=== PATIENT | female | born 1975 | race Caucasian/White ===

== ENCOUNTER 2019-01-13 11:00 | Outpatient (RCR) | payer SELFPAY | END 2019-02-12 00:01 | LOC: CR 11:00 | PROVIDERS: Family Provider Family Medicine; Visit Provider Internal Medicine Cardiovascular Disease | DX: Z98.61 Coronary angioplasty status (principal) ==

== ENCOUNTER 2019-02-20 13:21 | Outpatient (RCR) | payer SELFPAY | END 2019-03-15 23:59 | disposition home or self-care (01) | LOC: CR 13:21 | PROVIDERS: Family Provider Family Medicine; PCP Family Medicine; Referring Provider Internal Medicine Cardiovascular Disease; Visit Provider Internal Medicine Cardiovascular Disease | DX: Z95.5 Presence of coronary angioplasty implant and graft (principal) ==

== ENCOUNTER 2019-03-18 14:37 | Outpatient (RCR) | payer SELFPAY | END 2019-04-13 23:59 | disposition home or self-care (01) | LOC: CR 14:37 | PROVIDERS: Family Provider Family Medicine; PCP Family Medicine; Referring Provider Internal Medicine Cardiovascular Disease; Visit Provider Internal Medicine Cardiovascular Disease | DX: Z95.5 Presence of coronary angioplasty implant and graft (principal) ==

== ENCOUNTER 2019-04-16 08:24 | Outpatient (RCR) | payer SELFPAY | END 2019-05-14 23:59 | disposition home or self-care (01) | LOC: CR 08:24 | PROVIDERS: Family Provider Family Medicine; PCP Family Medicine; Referring Provider Internal Medicine Cardiovascular Disease; Visit Provider Internal Medicine Cardiovascular Disease | DX: Z95.5 Presence of coronary angioplasty implant and graft (principal) ==

== ENCOUNTER 2019-05-21 06:53 | Observation (INO) | payer MEDICARE, SELFPAY ==
[2019-05-21] VITALS (8 sets, daily range): BP systolic 104–128; BP diastolic 65–91; PULSE 75–90; RESP 16–20; TEMP 36.4–37; O2SAT 90–99; BMI 45.1
--- NOTE | 2019-05-21 06:59 | ED_ITS ---
HPI - Seizure General: Chief Complaint: Seizure Stated Complaint: SEIZURE/N/V BLOOD Time Seen by Provider: 05/21/19 06:59 History of Present Illness: HPI Narrative: 44-year-old female presents with a complaint of seizure. Patient's woke up and witnessed what appeared to be a seizure. He called 911 evidently talking to the we later found he thought he had CT 2 seizures before he called in. Patient has had a little bit of a fever as well and a cough. Fevers been subjective. Patient also has a history of early coronary disease and has had bypass and subsequent stenting she has an implantable defibrillator by her report and her 's I did not witness anything that looked like she had a discharge from the implantable defibrillator. She is not having any chest pain now. Associated symptoms: Deny chest pain, chills, fever(s) or malaise Review of Systems Const: Denies: fever, chills, body aches, change in appetite, fatigue or malaise ENMT: Denies: throat pain, ear pain, nasal discharge or nasal congestion Card: Denies: chest pain, edema, shortness of breath on exertion or shortness of breath when lying down Resp: Denies: shortness of breath, productive cough or non-productive cough GI: Denies: abdominal pain, nausea, vomiting, vomiting blood, coffee grounds in vomit, diarrhea, constipation, bloating, blood in stool or black tarry stool : Denies: flank pain, difficulty urinating, painful urination, urinary frequency or urinary urgency Skin/Breast: Denies: rash or itching Neuro: Reports: seizure-like activity PENDING SALE TO [facility] ED PFSH: Medical History Coronary artery disease Hyperlipidemia Hypertension Surgical History History of coronary artery bypass graft History of implantable cardioverter-defibrillator (ICD) placement Stented coronary artery Most recent stenting December 2018 saphenous vein graft to diagonal with drug-eluting stent as well as balloon angioplasty and saphenous vein graft to first obtuse marginal drug-eluting stent. Family History Other CAD (coronary artery disease) Social History (Reviewed 05/23/19 @ 06:44 by ROLA Bronson Smoking and tobacco status: former smoker Alcohol intake: never Physical Exam Const: COMMON NORMALS: no apparent distress GENERAL APPEARANCE: cooperative and comfortable ORIENTATION/CONSCIOUSNESS: Yes awake, Yes oriented to person, Yes oriented to place and Yes oriented to time HENMT: COMMON NORMALS: normocephalic, head/scalp atraumatic, hearing grossly normal bilaterally, external ears normal, EAC's normal, TM's normal bilaterally, nasal mucous membranes and turbinates normal, moist oral mucous membranes and oropharynx normal HEAD & SCALP: normocephalic and atraumatic NOSE: nasal mucous membranes and turbinates normal EXTERNAL EAR: Yes external ears normal EXTERNAL AUDITORY CANAL: EAC's normal TYMPANIC MEMBRANE: TM's normal bilaterally Eye: COMMON NORMALS: PERRL, EOMs intact bilaterally, conjunctivae normal and no scleral icterus CONJUNCTIVA: Yes conjunctivae normal PUPIL: Yes PERRL Neck/C-Spine: COMMON NORMALS: full ROM, no lymphadenopathy, supple and no JVD Lymph: LYMPHATIC: no lymphadenopathy noted and no lymphedema noted Resp: COMMON NORMALS: normal respiratory effort, no retractions, no use of accessory muscles and clear to auscultation bilaterally AUSCULTATION: clear to auscultation bilaterally Cardio: COMMON NORMALS: no JVD, regular rate, regular rhythm and no murmurs RATE: regular rate RHYTHM: regular rhythm GI: COMMON NORMALS: soft to palpation and no hepatosplenomegaly AUSCULTATION: Yes normoactive bowel sounds PALPATION: Yes soft, No tender, No guarding and Yes no hepatosplenomegaly Extremity: COMMON NORMALS: normal to inspection, normal capillary refill, no clubbing, cyanosis or edema, no calf tenderness and no pedal edema Neuro: SENSORIUM/ORIENTATION: Yes oriented to person, Yes oriented to place and Yes oriented to time Skin: COMMON NORMALS: no rashes or lesions noted GENERAL SKIN EXAM: no rashes or lesions noted Course Vital Signs: Vital signs: Vital Signs Temperature 98.5 F 05/22/19 11:35 Pulse Rate 70 05/22/19 11:35 Respiratory Rate 17 05/22/19 11:35 Blood Pressure 114/76 05/22/19 11:35 Pulse Oximetry 92 05/22/19 11:35 MDM - Seizure MDM Narrative: Medical decision making narrative: There is some concern about potential for Kovic infection patient's patient respiratory isolation and swab. Patient was also analyzer is no evidence of discharge patient was started on Keppra and will go ahead and admit her for further evaluation due to the new onset seizures. Lab Data: Labs: Lab Results 05/21/19 05/21/19 05/21/19 Range/Units 06:35 06:35 06:35 WBC 15.8 H (4.0-10.0) 10^3/ uL RBC 4.79 (4.1-5.3) 10^6/u L Hgb 14.9 (11.5-15.3) g/dL Hct 44.3 (37.0-47.0) % MCV 92.5 (81-99) fL MCH 31.1 (28.0-34.0) pg MCHC 33.6 (30.0-36.0) g/dL RDW 13.7 (12.1-15.1) % Plt Count 437 H (130-400) 10^3/c mm MPV 10.4 (7.4-10.4) fL Neut % (Auto) 81.2 % Lymph % (Auto) 11.8 % [place] % (Auto) 4.1 % Eos % (Auto) 2.2 % Baso % (Auto) 0.3 % Neut # (Auto) 12.8 H (1.8-7.7) 10^3/u L Lymph # (Auto) 1.9 (0.8-4.8) 10^3/u L [place] # (Auto) 0.6 (0.2-0.9) 10^3/u L Eos # (Auto) 0.4 (0.0-0.8) 10^3/u L Baso # (Auto) 0.0 (0.0-0.1) 10^3/u L Nucleated RBC % (a uto) 0 % Nucleated RBCs # 0.0 /100WBC Fibrinogen (184-529) mg/dL D-Dimer (0-0.59) ug/mIFE U Sodium 135 L (136-145) mmol/L Potassium 4.6 (3.5-5.1) mmol/L Chloride 99 (98-107) mmol/L Carbon Dioxide 22 (22-29) mmol/L Anion Gap 18.6 (5-19) BUN 9 (6-20) mg/dL Creatinine 1.0 H (0.5-0.9) mg/dL GFR Calculation 60.8 L (90-130) mL/min Glucose 147 H (65-115) mg/dL Calculated Osmolal ity 279 L (285-295) mOsm/k g Lactic Acid (0.5-2.2) mmol/L Calcium 10.3 (8.5-10.5) mg/dL Magnesium 2.4 H (1.7-2.3) mg/dL Ferritin (15-150) ng/mL Total Bilirubin 0.3 (0.15-1.2) mg/dL AST 27 (0-32) U/L ALT 43 H (0-33) U/L Alkaline Phosphata se 67 (35-105) IU/L Lactate Dehydrogen ase (135-214) U/L Creatine Kinase 286 H (26-192) U/L Total Protein 7.8 (6.6-8.7) g/dL Albumin 4.6 (3.5-5.2) g/dL Globulin 3.2 (1.3-4.6) g/dL Procalcitonin (0-0.5) ng/mL TSH (0.27-4.20) uIU/ mL Urine Color (Yellow) Urine Appearance (CLEAR) Urine pH (5-7) Ur Specific Gravit y (1.005-1.030) Urine Protein (Negative) Urine Glucose (UA) (Normal) Urine Ketones (Negative) Urine Blood (Negative) Urine Nitrate (Negative) Urine Bilirubin (NEGATIVE) Urine Urobilinogen (Negative) mg/dL Ur Leukocyte Mel ase (Negative) Urine RBC (0-2) /hpf Urine WBC (0-5) /hpf Ur Squamous Epith Cells (0-5) Amorphous Sediment Urine Bacteria (NONE) Urine Mucus Urine Opiates Scre en (Negative) ng/mL Ur Barbiturates Sc reen (Negative) ng/mL Ur Phencyclidine S crn (Negative) ng/mL Ur Amphetamines Sc reen (Negative) ng/mL U Benzodiazepines Scrn (Negative) ng/mL Urine Cocaine Scre en (Negative) ng/mL U Marijuana (THC) Screen (Negative) ng/mL Nasal/Oral COVID-1 9 PCR Influenza Type A A g (Negative) Influenza Type B A g (Negative) 05/21/19 05/21/19 05/21/19 Range/Units 06:35 06:35 06:35 WBC (4.0-10.0) 10^3/ uL RBC (4.1-5.3) 10^6/u L Hgb (11.5-15.3) g/dL Hct (37.0-47.0) % MCV (81-99) fL MCH (28.0-34.0) pg MCHC (30.0-36.0) g/dL RDW (12.1-15.1) % Plt Count (130-400) 10^3/c mm MPV (7.4-10.4) fL Neut % (Auto) % Lymph % (Auto) % [place] % (Auto) % Eos % (Auto) % Baso % (Auto) % Neut # (Auto) (1.8-7.7) 10^3/u L Lymph # (Auto) (0.8-4.8) 10^3/u L [place] # (Auto) (0.2-0.9) 10^3/u L Eos # (Auto) (0.0-0.8) 10^3/u L Baso # (Auto) (0.0-0.1) 10^3/u L Nucleated RBC % (a uto) % Nucleated RBCs # /100WBC Fibrinogen (184-529) mg/dL D-Dimer (0-0.59) ug/mIFE U Sodium (136-145) mmol/L Potassium (3.5-5.1) mmol/L Chloride (98-107) mmol/L Carbon Dioxide (22-29) mmol/L Anion Gap (5-19) BUN (6-20) mg/dL Creatinine (0.5-0.9) mg/dL GFR Calculation (90-130) mL/min Glucose (65-115) mg/dL Calculated Osmolal ity (285-295) mOsm/k g Lactic Acid (0.5-2.2) mmol/L Calcium (8.5-10.5) mg/dL Magnesium (1.7-2.3) mg/dL Ferritin 230 H (15-150) ng/mL Total Bilirubin (0.15-1.2) mg/dL AST (0-32) U/L ALT (0-33) U/L Alkaline Phosphata se (35-105) IU/L Lactate Dehydrogen ase 216 H (135-214) U/L Creatine Kinase (26-192) U/L Total Protein (6.6-8.7) g/dL Albumin (3.5-5.2) g/dL Globulin (1.3-4.6) g/dL Procalcitonin 0.03 (0-0.5) ng/mL TSH 1.43 (0.27-4.20) uIU/ mL Urine Color (Yellow) Urine Appearance (CLEAR) Urine pH (5-7) Ur Specific Gravit y (1.005-1.030) Urine Protein (Negative) Urine Glucose (UA) (Normal) Urine Ketones (Negative) Urine Blood (Negative) Urine Nitrate (Negative) Urine Bilirubin (NEGATIVE) Urine Urobilinogen (Negative) mg/dL Ur Leukocyte Mel ase (Negative) Urine RBC (0-2) /hpf Urine WBC (0-5) /hpf Ur Squamous Epith Cells (0-5) Amorphous Sediment Urine Bacteria (NONE) Urine Mucus Urine Opiates Scre en (Negative) ng/mL Ur Barbiturates Sc reen (Negative) ng/mL Ur Phencyclidine S crn (Negative) ng/mL Ur Amphetamines Sc reen (Negative) ng/mL U Benzodiazepines Scrn (Negative) ng/mL Urine Cocaine Scre en (Negative) ng/mL U Marijuana (THC) Screen (Negative) ng/mL Nasal/Oral COVID-1 9 PCR Influenza Type A A g (Negative) Influenza Type B A g (Negative) 05/21/19 05/21/19 05/21/19 Range/Units 07:50 07:50 08:45 WBC (4.0-10.0) 10^3/ uL RBC (4.1-5.3) 10^6/u L Hgb (11.5-15.3) g/dL Hct (37.0-47.0) % MCV (81-99) fL MCH (28.0-34.0) pg MCHC (30.0-36.0) g/dL RDW (12.1-15.1) % Plt Count (130-400) 10^3/c mm MPV (7.4-10.4) fL Neut % (Auto) % Lymph % (Auto) % [place] % (Auto) % Eos % (Auto) % Baso % (Auto) % Neut # (Auto) (1.8-7.7) 10^3/u L Lymph # (Auto) (0.8-4.8) 10^3/u L [place] # (Auto) (0.2-0.9) 10^3/u L Eos # (Auto) (0.0-0.8) 10^3/u L Baso # (Auto) (0.0-0.1) 10^3/u L Nucleated RBC % (a uto) % Nucleated RBCs # /100WBC Fibrinogen 562 H (184-529) mg/dL D-Dimer 0.68 H (0-0.59) ug/mIFE U Sodium (136-145) mmol/L Potassium (3.5-5.1) mmol/L Chloride (98-107) mmol/L Carbon Dioxide (22-29) mmol/L Anion Gap (5-19) BUN (6-20) mg/dL Creatinine (0.5-0.9) mg/dL GFR Calculation (90-130) mL/min Glucose (65-115) mg/dL Calculated Osmolal ity (285-295) mOsm/k g Lactic Acid (0.5-2.2) mmol/L Calcium (8.5-10.5) mg/dL Magnesium (1.7-2.3) mg/dL Ferritin (15-150) ng/mL Total Bilirubin (0.15-1.2) mg/dL AST (0-32) U/L ALT (0-33) U/L Alkaline Phosphata se (35-105) IU/L Lactate Dehydrogen ase (135-214) U/L Creatine Kinase (26-192) U/L Total Protein (6.6-8.7) g/dL Albumin (3.5-5.2) g/dL Globulin (1.3-4.6) g/dL Procalcitonin (0-0.5) ng/mL TSH (0.27-4.20) uIU/ mL Urine Color Yellow (Yellow) Urine Appearance Cloudy (CLEAR) Urine pH 6 (5-7) Ur Specific Gravit y 1.015 (1.005-1.030) Urine Protein Trace (Negative) Urine Glucose (UA) Norm (Normal) Urine Ketones Negative (Negative) Urine Blood Neg (Negative) Urine Nitrate Negative (Negative) Urine Bilirubin Neg (NEGATIVE) Urine Urobilinogen Norm (Negative) mg/dL Ur Leukocyte Mel ase Trace H (Negative) Urine RBC None (0-2) /hpf Urine WBC Rare (0-5) /hpf Ur Squamous Epith Cells 10-15 H (0-5) Amorphous Sediment 3+ Urine Bacteria 1+ H (NONE) Urine Mucus Trace Urine Opiates Scre en Negative (Negative) ng/mL Ur Barbiturates Sc reen Negative (Negative) ng/mL Ur Phencyclidine S crn Negative (Negative) ng/mL Ur Amphetamines Sc reen Negative (Negative) ng/mL U Benzodiazepines Scrn Negative (Negative) ng/mL Urine Cocaine Scre en Negative (Negative) ng/mL U Marijuana (THC) Screen Positive H (Negative) ng/mL Nasal/Oral COVID-1 9 PCR Influenza Type A A g (Negative) Influenza Type B A g (Negative) 05/21/19 05/21/19 05/21/19 Range/Units 08:45 08:52 09:13 WBC (4.0-10.0) 10^3/ uL RBC (4.1-5.3) 10^6/u L Hgb (11.5-15.3) g/dL Hct (37.0-47.0) % MCV (81-99) fL MCH (28.0-34.0) pg MCHC (30.0-36.0) g/dL RDW (12.1-15.1) % Plt Count (130-400) 10^3/c mm MPV (7.4-10.4) fL Neut % (Auto) % Lymph % (Auto) % [place] % (Auto) % Eos % (Auto) % Baso % (Auto) % Neut # (Auto) (1.8-7.7) 10^3/u L Lymph # (Auto) (0.8-4.8) 10^3/u L [place] # (Auto) (0.2-0.9) 10^3/u L Eos # (Auto) (0.0-0.8) 10^3/u L Baso # (Auto) (0.0-0.1) 10^3/u L Nucleated RBC % (a uto) % Nucleated RBCs # /100WBC Fibrinogen (184-529) mg/dL D-Dimer (0-0.59) ug/mIFE U Sodium (136-145) mmol/L Potassium (3.5-5.1) mmol/L Chloride (98-107) mmol/L Carbon Dioxide (22-29) mmol/L Anion Gap (5-19) BUN (6-20) mg/dL Creatinine (0.5-0.9) mg/dL GFR Calculation (90-130) mL/min Glucose (65-115) mg/dL Calculated Osmolal ity (285-295) mOsm/k g Lactic Acid 2.0 (0.5-2.2) mmol/L Calcium (8.5-10.5) mg/dL Magnesium (1.7-2.3) mg/dL Ferritin (15-150) ng/mL Total Bilirubin (0.15-1.2) mg/dL AST (0-32) U/L ALT (0-33) U/L Alkaline Phosphata se (35-105) IU/L Lactate Dehydrogen ase (135-214) U/L Creatine Kinase (26-192) U/L Total Protein (6.6-8.7) g/dL Albumin (3.5-5.2) g/dL Globulin (1.3-4.6) g/dL Procalcitonin (0-0.5) ng/mL TSH (0.27-4.20) uIU/ mL Urine Color (Yellow) Urine Appearance (CLEAR) Urine pH (5-7) Ur Specific Gravit y (1.005-1.030) Urine Protein (Negative) Urine Glucose (UA) (Normal) Urine Ketones (Negative) Urine Blood (Negative) Urine Nitrate (Negative) Urine Bilirubin (NEGATIVE) Urine Urobilinogen (Negative) mg/dL Ur Leukocyte Mel ase (Negative) Urine RBC (0-2) /hpf Urine WBC (0-5) /hpf Ur Squamous Epith Cells (0-5) Amorphous Sediment Urine Bacteria (NONE) Urine Mucus Urine Opiates Scre en (Negative) ng/mL Ur Barbiturates Sc reen (Negative) ng/mL Ur Phencyclidine S crn (Negative) ng/mL Ur Amphetamines Sc reen (Negative) ng/mL U Benzodiazepines Scrn (Negative) ng/mL Urine Cocaine Scre en (Negative) ng/mL U Marijuana (THC) Screen (Negative) ng/mL Nasal/Oral COVID-1 9 PCR Negative Influenza Type A A g Negative (Negative) Influenza Type B A g Negative (Negative) Discharge Plan Discharge Admit Provider: Raheem Ortiz Condition: Stable Discharge Orders: Discharge Order (Routine); Ordered 05/22/19 Ordered By: Raheem Ortiz Discharge Date/Time: 05/21/19 13:32 Coding Level of Care Code ED [place] Sifter for Loreto Abbasi
[2019-05-21 07:17] LABS: Basophils % 0.3 %; Eosinophils # 0.4 10^3/uL (0.0-0.8); Eosinophils % 2.2 %; Hematocrit 44.3 % (37.0-47.0); Hemoglobin 14.9 g/dL (11.5-15.3); Lymphocytes # 1.9 10^3/uL (0.8-4.8); Lymphocytes % 11.8 %; Mean Corpuscular HGB Conc 33.6 g/dL (30.0-36.0); Mean Corpuscular Hemoglobin 31.1 pg (28.0-34.0); Mean Corpuscular Volume 92.5 fL (81-99); Mean Platelet Volume 10.4 fL (7.4-10.4); Monocytes # 0.6 10^3/uL (0.2-0.9); Monocytes % 4.1 %; Neutrophils # 12.8 10^3/uL (1.8-7.7); Neutrophils % 81.2 %; Nucleated Red Blood Cells % 0 %; Platelet Count 437 10^3/cmm (130-400); Red Blood Count 4.79 10^6/uL (4.1-5.3); Red Cell Distribution Width 13.7 % (12.1-15.1); White Blood Count 15.8 10^3/uL (4.0-10.0)
--- NOTE | 2019-05-21 07:23 | XR_ITS ---
WS: [id number] CHEST XRAY TECHNIQUE: Portable chest. CLINICAL INFORMATION: dyspnea/cough COMPARISON: October 22, 2017 FINDINGS: Heart: Cardiomegaly. Sternotomy. CABG. Single lead cardiac pacer. Lungs: Shallow inspiration. Lungs are well aerated. Trace pleural fluid left lung base. Bones: Normal visualized bony structures. XR/XR chest 1V portable [id number] IMPRESSION: 1. Cardiomegaly with sternotomy and CABG. Single lead cardiac pacer. 2. Trace left pleural fluid.
--- NOTE | 2019-05-21 07:24 | CTR_ITS ---
PROCEDURE INFORMATION: Exam: CT Angiography Chest With Contrast Exam date and time: 05/21/2019 7:27 AM Age: 44 years old Clinical indication: Other: Vomiting (spitting up) blood; Prior surgery; Surgery date: 6+ months; Surgery type: Quad bypass , pacer; Additional info: Loc, new onset seizures - coughing up blood TECHNIQUE: Imaging protocol: Computed tomographic angiography of the chest with intravenous contrast. 3D rendering: MIP and/or 3D reconstructed images were created by the technologist. Total DLP: 561.06 mGy-cm Radiation optimization: All CT scans at this facility use at least one of these dose optimization techniques: automated exposure control; mA and/or kV adjustment per patient size (includes targeted exams where dose is matched to clinical indication); or iterative reconstruction. Contrast material: OMNI 350; Contrast volume: 95 ml; Contrast route: IV; COMPARISON: CR Chest 1 [place] [id number] 10/22/2017 11:53 PM FINDINGS: Pulmonary arteries: No pulmonary emboli. Aorta: No aortic aneurysm. No aortic dissection. Lungs: Examination of the lungs is limited by motion artifact. Minimal subtle areas of ground-glass opacity noted for example in the right lower lobe on axial image 279, series 2; right lower lobe axial image 289, series 2; right upper lobe on axial image 115 series 2, and in the left lower lobe on axial image 263, series 2. Pleural space: Unremarkable. No pneumothorax. No pleural effusion. Heart: Previous CABG. Liver: Fatty liver. Gallbladder and bile ducts: Stones noted in the gallbladder. Kidneys and ureters: Cortical scarring noted in the kidneys. Lymph nodes: Unremarkable. No enlarged lymph nodes. Bones/joints: Previous median sternotomy. Soft tissues: Unremarkable. CT/CT angio chest PE protcl [id number] IMPRESSION: 1. No pulmonary embolus. 2. Subtle areas of peripheral ground-glass opacities, as above. The findings are somewhat limited by motion artifact and may represent areas of air trapping/atelectasis; although early infiltrates cannot be excluded. In the appropriate clinical context these pulmonary opacities maybe suggestive of an atypical, possibly viral pneumonia. Recommend management on clinical grounds. Correlate with travel history, contact history and immune status. 3. Cholelithiasis. Radiation Dose CTDIVOL = (mGy): DLP = 561.06 (mGy-cm)
[2019-05-21 07:32] LABS: Alanine Aminotransferase 43 U/L (0-33); Albumin Level 4.6 g/dL (3.5-5.2); Alkaline Phosphatase 67 IU/L (35-105); Anion Gap 18.6 (5-19); Aspartate Amino Transferase 27 U/L (0-32); Blood Urea Nitrogen 9 mg/dL (6-20); Calcium 10.3 mg/dL (8.5-10.5); Carbon Dioxide 22 mmol/L (22-29); Chloride 99 mmol/L (98-107); Globulin 3.2 g/dL (1.3-4.6); Glomerular Filtration Rate 60.8 mL/min (90-130); Glucose 147 mg/dL (65-115); Magnesium 2.4 mg/dL (1.7-2.3); Osmolality Calculated 279 mOsm/kg (285-295); Potassium 4.6 mmol/L (3.5-5.1); Sodium 135 mmol/L (136-145); Total Bilirubin 0.3 mg/dL (0.15-1.2); Total Protein 7.8 g/dL (6.6-8.7)
[2019-05-21 07:47] LABS: Creatine Phosphokinase 286 U/L (26-192)
[2019-05-21] MEDS: iohexol 350 mg/mL 100 mL Btl IV (07:53)
[2019-05-21 08:40] LABS: Specific Gravity, Urine 1.015 (1.005-1.030); Urine Appearance Cloudy (CLEAR); Urine Color Yellow (Yellow); pH Urine 6 (5-7)
[2019-05-21 08:41] LABS: Add Urine Microscopic? YES; Bilirubin Urine Neg (NEGATIVE); Blood Urine Neg (Negative); Glucose Urine UA Norm (Normal); Ketones Urine Negative (Negative); Leukocyte Esterase Urine Trace (Negative); Nitrate Urine Negative (Negative); Protein Urine Trace (Negative); Urobilinogen Urine Norm (Negative)
[2019-05-21 08:44] LABS: Amorphous Sediment Urine 3+; Bacteria Urine 1+; Mucus Urine TRACE; WBC Urine RARE /hpf (0-5)
[2019-05-21 08:45] LABS: Add Urine Culture? No
--- NOTE | 2019-05-21 08:54 | PC.NURSE ---
COVID 19 test completed and taken to lab
[2019-05-21 09:07] LABS: Fibrinogen 562 mg/dL (184-529)
[2019-05-21 09:12] LABS: Procalcitonin 0.03 ng/mL (0-0.5)
[2019-05-21 09:21] LABS: Ferritin 230 ng/mL (15-150)
[2019-05-21 09:31] LABS: D Dimer 0.68 ug/mIFEU (0-0.59)
[2019-05-21 10:27] LABS: Influenza A by IFA Negative (Negative); Influenza B by IFA Negative (Negative)
[2019-05-21 10:56] LABS: Amphetamines Screen Urine Negative (Negative); Barbiturates Screen Urine Negative (Negative); Benzodiazepines Screen Urine Negative (Negative); Cocaine Screen Urine Negative (Negative); Opiate Screen Urine Negative (Negative); PCP Screen Urine Negative (Negative); THC Screen Urine Positive (Negative)
--- NOTE | 2019-05-21 11:14 | CT_ITS ---
WS: [id number] CT HEAD TECHNIQUE: Noncontrast CT of the head obtained from the skullbase to the vertex. CLINICAL INFORMATION: seizure COMPARISON: None. DLP: 859.[address] scans at [facility] use at least one of these dose optimization techniques: automat ed exposure control; mA and/or kV adjustment per patient size (includes targeted exams where dose is matched to clinical indication); or iterative reconstruction. FINDINGS: No evidence of intracranial hemorrhage or mass effect. Ventricular system and basal cisterns are shepherd nt. Normal tracey-white differentiation. No Extra-axial fluid collections. No evidence of mass or mass effect. Paranasal sinuses and mastoid air cells are well aerated. .Normal visualized soft tissues. CT/CT head wo con* [id number] IMPRESSION: 1. No evidence of intracranial hemorrhage or mass effect. 2. Normal tracey-white differentiation. 3. No acute intracranial findings.
[2019-05-21 11:17] LABS: Lactate Dehydrogenase 216 U/L (135-214)
--- NOTE | 2019-05-21 11:17 | PM.HP ---
Providers/Chief Complaint Primary Care Provider: Blanca Levy MD Chief Complaint: SEIZURE/N/V BLOOD History of Present Illness Gilma Renteria is a 44 year old female who presented to the hospital with concerns of possible seizure. Patient reports she does not remember the events. I discussed her case with her , who reports that this morning when he was asleep he was awoken by her shaking. He reports she shook the entire bed for a few minutes, then woke up and grabbed him. She did not seem like she was aware, perhaps somewhat combative, and it took her 5 minutes to be able to say some words. She reported by the time the ambulance arrived, she refused transport. At some point she went back asleep, and 45 minutes later she had some groaning, shaking and a little bit of blood running out of her nose. reports she was not aware and was combative for 10 to 15 minutes. She gradually came around and was transported to the hospital. Patient reports she remembers none of this. She had no loss of urine or stool. She reports she is feeling okay currently other than a chronic cough. She denies any fever. She reports she always has some nasal congestion. She denies any sick contacts but does comment that her is a dump truck driver off highway. She denies any vomiting, diarrhea. She denies any previous history of seizure. She denies any chest pain. She remembers being nauseated at one point but is not nauseated currently. She reports on arrival to the ER she threw up a small amount of blood streaked emesis. She denies any ingestion. Review of Systems General: Reports: 10 or more systems reviewed and unremarkable except in HPI and below Const: Denies: fever or chills Eyes: Denies: blurry vision ENMT: Denies: throat pain Card: Denies: chest pain Resp: Reports: productive cough; Denies: shortness of breath GI: Reports: nausea and vomiting; Denies: abdominal pain : Denies: flank pain Musc: Denies: neck pain Skin/Breast: Denies: rash Neuro: Reports: seizure-like activity; Denies: headache Psych: Denies: anxiety or depression Endo: Denies: excessive urination Christian/Lymph: Denies: easy bruising All/Imm: Denies: hives Medications/Allergies Home Medications Medication Instructions Recorded Confirmed Last Taken Type carvedilol 25 mg PO BID 05/21/19 05/21/19 Unknown History clopidogrel [Plavix] 75 mg PO DAILY 05/21/19 05/21/19 Unknown History ezetimibe 10 mg PO DAILY 05/21/19 05/21/19 Unknown History famotidine 20 mg PO BID 05/21/19 05/21/19 Unknown History losartan 100 mg PO DAILY 05/21/19 05/21/19 Unknown History magnesium L-lactate 84 mg PO BID 05/21/19 05/21/19 Unknown History rosuvastatin 40 mg PO DAILY 05/21/19 05/21/19 Unknown History spironolactone 25 mg PO DAILY 05/21/19 05/21/19 Unknown History Allergies Allergy/AdvReac Type Severity Reaction Status Date / Time Penicillins Allergy Unknown Verified 05/21/19 06:58 PFSH Acute PFSH: Medical History (Updated 05/21/19 @ 11:31 by Raheem Ortiz MD) Coronary artery disease Hyperlipidemia Hypertension Surgical History (Updated 05/21/19 @ 11:25 by Raheem Ortiz MD) History of coronary artery bypass graft History of implantable cardioverter-defibrillator (ICD) placement Stented coronary artery Most recent stenting December 2018 saphenous vein graft to diagonal with drug-eluting stent as well as balloon angioplasty and saphenous vein graft to first obtuse marginal drug-eluting stent. Family History (Updated 05/21/19 @ 11:25 by Raheem Ortiz MD) Other CAD (coronary artery disease) Social History (Updated 05/21/19 @ 11:25 by Raheem Ortiz MD) Smoking and tobacco status: former smoker Alcohol intake: never Substance/Drug Use: never Vitals/I&O/Wt Last Vital Signs Temp 97.9 F 05/21/19 06:57 Pulse 80 05/21/19 10:20 Resp 18 05/21/19 10:20 BP 125/88 05/21/19 10:20 Pulse Ox 99 05/21/19 10:20 05/20/19 05/21/19 05/21/19 22:59 06:59 14:59 Intake Total 110 / 110 Balance 110 / 110 Weight last 48 hrs Weight 127.006 kg Physical Exam Narrative: EXAM NARRATIVE: General exam is no apparent distress, conversant, occasional cough HEENT: Pupils equally round. Neck is supple no lymphadenopathy or thyromegaly Cardiovascular regular rate and rhythm without murmur, no S3 or S4 Lungs clear. No wheezing or crackles Abdomen is soft with positive bowel sounds. No obvious organomegaly, obese was deferred Extremities no cyanosis clubbing or edema, cap refill brisk Skin no rash Neuro no focal deficits Data : 05/21/19 06:35 05/21/19 06:35 Micro: Microbiology 05/21/19 08:45 Blood Culture - Preliminary Blood SPECIMEN COLLECTED 05/21/19 08:40 Blood Culture - Preliminary Blood SPECIMEN COLLECTED Other data: D-dimer 0.68 Magnesium 2.4 Liver function tests normal with the exception of AST of 43 CK 286 LDH 216 Urinalysis negative Urine drug screen positive for THC Covid 19 pending Influenza a and B- CTA chest demonstrates no pulmonary embolism, cholelithiasis, subtle areas of groundglass opacities bibasilar Chest x-ray demonstrated cardiomegaly, prior CABG, pacer/defibrillator A&P Assessment and plan (1) Seizure: Most likely this was a seizure. We will need to interrogate her defibrillator, to ensure no arrhythmia occurred. She has been placed on Keppra in the emergency department and received 1000 mg. We will continue this currently until further evaluation can occur. CT head noncontrast Check EKG Check TSH Status: Acute (2) Hematemesis: Likely secondary to epistaxis which is now stopped. For the time being we will give Protonix. Check hemoglobin around 1600 Status: Acute (3) Leukocytosis: No current evidence of infection. Likely secondary to seizure. Repeat in the morning. Status: Acute (4) Chronic cough: Covid 19 testing has been ordered Albuterol metered-dose inhaler as needed May need further work-up as an outpatient including pulmonary function tests. Status: Acute Additional A&P Information Coronary artery disease with history of coronary stenting in December. Continue current medications. History of defibrillator placement secondary to ischemic cardiomyopathy with last EF of 35% in October 2017. This EF was confirmed during nuclear stress testing December 2018. I will interrogate the AICD. She will be on telemetry. EKG will be performed. Hypertension, continue home meds Hyperlipidemia, continue home meds Obesity Lovenox for DVT prophylaxis if no concerns on CT head Full code Attestations Medical Necessity Statement*: Will need less than 2 midnight stay for evaluation of seizure Time Spent in Patient Care: Greater than 35 minutes Coding Level of Care Code Acute Bologna Maker for g Fwd Diagnoses Seizure R56.9 Hematemesis K92.0 Leukocytosis D72.829 Chronic cough R05
--- NOTE | 2019-05-21 12:11 | PC.NURSE ---
[address] with [address] [facility] interrogator
--- NOTE | 2019-05-21 12:11 | PC.NURSE ---
report to [facility] turned over
--- NOTE | 2019-05-21 12:19 | PC.NURSE ---
REPORT CALLED TO BRYAN MORELAND ON [facility] PT TO REMAIN IN ER TILL CT SCAN OF HEAD BACK PER DR DEL REAL
--- NOTE | 2019-05-21 14:01 | ECG_ITS ---
Measurements Intervals [place] Rate: 81 P: 70 MI: 181 QRS: 34 QRSD: 129 T: 118 QT: 406 QTc: 473 SINUS RHYTHM MODERATE INTRAVENTRICULAR CONDUCTION DELAY [110+ ms QRS DURATION] NONSPECIFIC T-WAVE ABNORMALITY Compared to ECG 01/01/2019 05:50:31 T-wave abnormality now present Myocardial infarct finding no longer present Electronically Signed On 05-22-2019 18:00:24 CDT by Blanca Levy M.D. [email or web address]
[2019-05-21 14:55] LABS: Thyroid Stimulating Hormone 1.43 uIU/mL (0.27-4.20)
[2019-05-21 16:26] LABS: Hematocrit 42.5 % (37.0-47.0)
[2019-05-21] MEDS: pantoprazole DR 40 mg Tablet PO (17:17)
[2019-05-21] MEDS: enoxaparin 40 mg/0.4 mL Syringe SUBCUT (17:17)
[2019-05-21] MEDS: carvedilol 25 mg Tablet PO (17:17)
[2019-05-21 20:42] LABS: Coronavirus Lab Test PTC Negative
[2019-05-21] MEDS: magnesium lactate 84 mg Tablet PO (21:16)
[2019-05-21] MEDS: acetaminophen 325 mg Tablet 650 MG PO (21:18)
[2019-05-22] VITALS (8 sets, daily range): BP systolic 114–129; BP diastolic 71–81; PULSE 65–78; RESP 17–20; TEMP 36.7–37.2; O2SAT 90–93
[2019-05-22 04:59] LABS: Alanine Aminotransferase 35 U/L (0-33); Albumin Level 3.9 g/dL (3.5-5.2); Alkaline Phosphatase 59 IU/L (35-105); Anion Gap 16.9 (5-19); Aspartate Amino Transferase 23 U/L (0-32); Blood Urea Nitrogen 9 mg/dL (6-20); Calcium 9.5 mg/dL (8.5-10.5); Carbon Dioxide 25 mmol/L (22-29); Chloride 101 mmol/L (98-107); Globulin 3.4 g/dL (1.3-4.6); Glomerular Filtration Rate 60.8 mL/min (90-130); Glucose 111 mg/dL (65-115); Osmolality Calculated 285 mOsm/kg (285-295); Potassium 3.9 mmol/L (3.5-5.1); Sodium 139 mmol/L (136-145); Total Bilirubin 0.3 mg/dL (0.15-1.2); Total Protein 7.3 g/dL (6.6-8.7)
[2019-05-22] MEDS: FUROsemide 40 mg Tablet PO (06:21)
[2019-05-22 06:28] LABS: Basophils % 0.2 %; Eosinophils # 0.2 10^3/uL (0.0-0.8); Eosinophils % 1.6 %; Hematocrit 41.2 % (37.0-47.0); Hemoglobin 13.6 g/dL (11.5-15.3); Lymphocytes # 3.2 10^3/uL (0.8-4.8); Lymphocytes % 26.2 %; Mean Corpuscular Hemoglobin 31.2 pg (28.0-34.0); Mean Corpuscular Volume 94.5 fL (81-99); Mean Platelet Volume 10.1 fL (7.4-10.4); Monocytes # 0.8 10^3/uL (0.2-0.9); Monocytes % 6.9 %; Neutrophils # 7.9 10^3/uL (1.8-7.7); Neutrophils % 64.8 %; Nucleated Red Blood Cells % 0 %; Platelet Count 326 10^3/cmm (130-400); Red Blood Count 4.36 10^6/uL (4.1-5.3); Red Cell Distribution Width 13.8 % (12.1-15.1); White Blood Count 12.2 10^3/uL (4.0-10.0)
[2019-05-22] MEDS: clopidogrel 75 mg Tablet PO (08:28)
[2019-05-22] MEDS: losartan 50 mg Tablet 100 MG PO (08:29)
[2019-05-22] MEDS: ezetimibe 10 mg Tablet PO (08:29)
[2019-05-22] MEDS: atorvastatin 40 mg Tablet 80 MG PO (08:30)
[2019-05-22] MEDS: spironolactone 25 mg Tablet PO (08:30)
[2019-05-22] MEDS: carvedilol 25 mg Tablet PO (08:30)
[2019-05-22] MEDS: magnesium lactate 84 mg Tablet PO (08:30)
[2019-05-22] MEDS: pantoprazole DR 40 mg Tablet PO (08:30)
--- NOTE | 2019-05-22 10:16 | PC.CHAP ---
Pastoral Care Encounter/Spiritual Assessment Type of Contact [] Declined firearms expert visit [] Patient/Family/Request visit [] Outpatient visit [] Follow-up visit [] Physician referral [] Code/Alert [x] Routine visit [] Staff referral [] Actively dying [] Patient sleeping [] Family support [] [] Out of room [] Palliative care [] [] Receiving care in room [] Pre-surgical visit [] Trauma [] Long length of stay [] ICU visit [] Other: Relational/Emotional Strength [] Patient feels connected with others/family/visitors/staff [] Distress [] Loneliness/isolation [] Abandonment Spirituality of Patient [x] Person of Nikki [] Attends Yarsani of their Nikki [x] Believes in Prayer [] Reads Bible or Buddhism materials [] There are Spiritual issues to be addressed 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 Interventions [x] Prayer [] Active listening [] Non-anxious presence [] Spiritual/emotional support [] Crisis/trauma care [] Spiritual counseling [] Bereavement support [] Provided bereavement packet [] Provided Bible/devotional materials [] Provided toy/stuffed animal, coloring book to patient or family member [] Provided Communion [] Anointing/[place] [] Salvation [x] Completed spiritual assessment [] Other: Impact on Illness or Injury [] Angry [] Fearful [] Anxious [] Often cries [] Exhaustion [] Unable to work [] Unable to attend faith [] Unable to walk/stand [] Unable to read [] Unable to drive [] Unable to eat/drink [] Unable to sleep [] Unable to be with family [] Patient intubated [] Other: Summary Patient awaiting results of tests. Has no history of Seizures... Time spent with patient 15min
--- NOTE | 2019-05-22 10:31 | P.DS_ITS ---
Discharge Providers Date of Admission: 05/21/19 10:45 Date of Discharge: May 22, 2019 Attending Provider at Admission: Raheem Ortiz MD Attending Provider at Discharge: Raheem Ortiz MD Primary Care Provider: Blanca Levy MD Diagnoses at Discharge Discharge Diagnosis (1) Seizure: Status: Acute Problem details: Initiated on Keppra (2) Hematemesis: Status: Acute Problem details: Secondary to nosebleed, no recurrence (3) Leukocytosis: Status: Acute Problem details: Improved (4) Chronic cough: Status: Acute Problem details: Likely secondary to COPD. Continued wheezing. Consider pulmonary function tests as outpatient on follow-up. Reason for Visit Reason for Visit: Reason For Visit: SEIZURE/N/V BLOOD Hospital Course Hospital Course: Gilma is a 44-year-old white female who had a witnessed seizure, and sleep by her occurring twice with a postictal period. She was brought to the emergency department and placed on Keppra. She was also noted to have some wheezing. Patient reports she has chronic cough and wheezing in past history of smoking. A CTA was eventually done demonstrating some groundglass opacities. Cholelithiasis was also noted which was asymptomatic. CT head demonstrated no acute concerns. She did have a Covid 19 test as well as influenza test which were all negative. The following day without antibiotics she was feeling much better. Still had an occasional cough which is her norm. White blood cell count was decreased. She had had no fevers while in the hospital or seizures. She will be discharged home today, May 21 for follow-up with her primary care provider, neurology. Consideration for pulmonary function tests as an outpatient. Of note secondary to her cardiac history telemetry was also provided while in the hospital and no evidence of arrhythmia was noted. Her pacemaker/defibrillator was investigated in the emergency department as well and no evidence of arrhythmia. Physical Exam Narrative: EXAM NARRATIVE: General exam no apparent distress Cardiovascular regular rate and rhythm without murmur Lungs a few bibasilar wheezes Abdomen is soft positive bowel sounds Extremities no cyanosis clubbing or edema Discharge Data Data Completed and Pending: Completed Studies During Hospitalization Category Date Time Status CT angio chest PE protcl [id number] Stat Cat Scan 05/21/19 07:[address] head wo con* 7 0450 Urgent Cat Scan 05/21/19 11:14 Completed XR chest 1V karma ble [id number] Stat Exams 05/21/19 07:23 Completed Pending at discharge Category Date Time Status Blood Culture Sta t Lab 05/21/19 08:45 Results Labs from last 24 hours 05/22/19 05/22/19 05/21/19 04:05 04:05 15:46 WBC 12.2 H RBC 4.36 Hgb 13.6 14.0 Hct 41.2 42.5 MCV 94.5 MCH 31.2 MCHC 33.0 RDW 13.8 Plt Count 326 MPV 10.1 Neut % (Auto) 64.8 Lymph % (Auto) 26.2 Gillespie % (Auto) 6.9 Eos % (Auto) 1.6 Baso % (Auto) 0.2 Neut # (Auto) 7.9 H Lymph # (Auto) 3.2 Gillespie # (Auto) 0.8 Eos # (Auto) 0.2 Baso # (Auto) 0.0 Nucleated RBC % (a uto) 0 Nucleated RBCs # 0.0 Sodium 139 Potassium 3.9 Chloride 101 Carbon Dioxide 25 Anion Gap 16.9 BUN 9 Creatinine 1.0 H GFR Calculation 60.8 L Glucose 111 Calculated Osmolal ity 285 Calcium 9.5 Total Bilirubin 0.3 AST 23 ALT 35 H Alkaline Phosphata se 59 Lactate Dehydrogen ase Total Protein 7.3 Albumin 3.9 Globulin 3.4 TSH Urine Opiates Scre en Ur Barbiturates Sc reen Ur Phencyclidine S crn Ur Amphetamines Sc reen U Benzodiazepines Scrn Urine Cocaine Scre en U Marijuana (THC) Screen Nasal/Oral COVID-1 9 PCR 05/21/19 05/21/19 05/21/19 08:52 07:50 06:35 WBC RBC Hgb Hct MCV MCH MCHC RDW Plt Count MPV Neut % (Auto) Lymph % (Auto) Gillespie % (Auto) Eos % (Auto) Baso % (Auto) Neut # (Auto) Lymph # (Auto) Gillespie # (Auto) Eos # (Auto) Baso # (Auto) Nucleated RBC % (a uto) Nucleated RBCs # Sodium Potassium Chloride Carbon Dioxide Anion Gap BUN Creatinine GFR Calculation Glucose Calculated Osmolal ity Calcium Total Bilirubin AST ALT Alkaline Phosphata se Lactate Dehydrogen ase Total Protein Albumin Globulin TSH 1.43 Urine Opiates Scre en Negative Ur Barbiturates Sc reen Negative Ur Phencyclidine S crn Negative Ur Amphetamines Sc reen Negative U Benzodiazepines Scrn Negative Urine Cocaine Scre en Negative U Marijuana (THC) Screen Positive H Nasal/Oral COVID-1 9 PCR Negative 05/21/19 06:35 WBC RBC Hgb Hct MCV MCH MCHC RDW Plt Count MPV Neut % (Auto) Lymph % (Auto) Gillespie % (Auto) Eos % (Auto) Baso % (Auto) Neut # (Auto) Lymph # (Auto) Gillespie # (Auto) Eos # (Auto) Baso # (Auto) Nucleated RBC % (a uto) Nucleated RBCs # Sodium Potassium Chloride Carbon Dioxide Anion Gap BUN Creatinine GFR Calculation Glucose Calculated Osmolal ity Calcium Total Bilirubin AST ALT Alkaline Phosphata se Lactate Dehydrogen ase 216 H Total Protein Albumin Globulin TSH Urine Opiates Scre en Ur Barbiturates Sc reen Ur Phencyclidine S crn Ur Amphetamines Sc reen U Benzodiazepines Scrn Urine Cocaine Scre en U Marijuana (THC) Screen Nasal/Oral COVID-1 9 PCR Vitals: Last Vital Signs Temp 98.6 F 05/22/19 08:00 Pulse 78 05/22/19 08:00 Resp 17 05/22/19 08:00 BP 129/81 05/22/19 08:29 Pulse Ox 93 05/22/19 08:00 Discharge Plan Discharge Patient Disposition: Home, Self-Care Condition: Stable Prescriptions: New levetiracetam 500 mg Tablet 500 mg PO BID Qty: 60 RF: 0 fluticasone propion-salmeterol [Advair Diskus] 250-50 mcg/dose blister with device 1 inh INHALATION BID Qty: 60 RF: 0 Combivent Respimat 20-100 mcg/actuation mist 1 puff INHALATION Q6H Qty: 4 RF: 0 Continued furosemide 40 mg tablet 40 mg PO QAM Qty: 90 RF: 3 carvedilol 25 mg Tablet 25 mg PO BID RF: 0 Plavix 75 mg Tablet 75 mg PO DAILY RF: 0 spironolactone 25 mg Tablet 25 mg PO DAILY RF: 0 famotidine 20 mg Tablet 20 mg PO BID RF: 0 losartan 100 mg Tablet 100 mg PO DAILY RF: 0 rosuvastatin 40 mg Tablet 40 mg PO DAILY RF: 0 magnesium L-lactate 84 mg Tablet Extended Release 84 mg PO BID RF: 0 ezetimibe 10 mg tablet 10 mg PO DAILY RF: 0 aspirin 325 mg Tablet 325 mg PO DAILY RF: 0 Discharge Orders: Discharge Order (Routine); Ordered 05/22/19 Ordered By: Raheem Ortiz Referrals: Raheem Ortiz MD [Hospitalist] - Activity Restrictions/Additional Instructions: Follow-up with primary care provider 3 to 5 days. Consideration of pulmonary function tests Follow-up with neurology 2 weeks for probable new onset seizure disorder Seizure precautions, no driving, no swimming Take all medicine as prescribed Get plenty of sleep, avoid any stimulants, such as caffeine, alcohol. Discharge Attestations Time Spent in Discharge Care*: greater than 30 min Quality Metrics Clinical Quality Measures During this hospital stay, did patient experience: None Coding Level of Care Code Acute Lithographers Printer for Chg Fwd Diagnoses Seizure R56.9 Hematemesis K92.0 Leukocytosis D72.829 Chronic cough R05
[2019-05-22] MEDS: levETIRAcetam 500 mg Tablet PO (10:32)
--- NOTE | 2019-05-22 13:06 | PC.NURSE ---
Discharge Note Discharge orders were explained to patient along with medication list and education and adverse reaction of all meds. IV was removed and catheter in tact. Patient Tolerated well. Patient walked off the floor with another nurse.
== END 2019-05-22 13:10 | disposition home or self-care (01) ==
LOC: ER 08:47 → MEDSURG 12:02
PROVIDERS: Admitting Provider Internal Medicine; Emergency Provider Family Medicine; Family Provider Family Medicine; PCP Internal Medicine Cardiovascular Disease; Visit Provider Internal Medicine
DX: R56.9 Unspecified convulsions (principal); K92.0 Hematemesis; D72.829 Elevated white blood cell count, unspecified; R05 Cough; Z20.828 Contact with and (suspected) exposure to other viral communicable diseases; I25.10 Atherosclerotic heart disease of native coronary artery without angina pectoris; E78.5 Hyperlipidemia, unspecified; I10 Essential (primary) hypertension; Z95.1 Presence of aortocoronary bypass graft; Z95.5 Presence of coronary angioplasty implant and graft; Z82.49 Family history of ischemic heart disease and other diseases of the circulatory system; Z87.891 Personal history of nicotine dependence; E66.9 Obesity, unspecified; Z68.42 Body mass index [BMI] 45.0-49.9, adult
CPT/HCPCS: 12345; 36415; 70450; 71045; 71275; 73221; 80053; 80306; 81001; 82550; 82728; 83605; 83615; 83735; 84145; 84443; 85014; 85018; 85025; 85378; 85384; 87040; 87635; 87804; 93005; 94762; 96365; 96366; 96372; 99284; 99285; G0378; J1650; J1953; Q9967

== ENCOUNTER → 2019-06-04 13:43 | Outpatient (BNVA) | payer MEDICARE, SELFPAY | PROVIDERS: Family Provider Family Medicine; PCP Family Medicine; Referring Provider Internal Medicine; Visit Provider Specialist | DX: G40.909 Epilepsy, unspecified, not intractable, without status epilepticus (principal) | CPT/HCPCS: 99205 ==

== ENCOUNTER → 2019-06-18 14:40 | Outpatient (BNVA) | payer MEDICARE, SELFPAY | PROVIDERS: Family Provider Family Medicine; PCP Family Medicine; Visit Provider Specialist | DX: G40.909 Epilepsy, unspecified, not intractable, without status epilepticus (principal); Z87.891 Personal history of nicotine dependence | CPT/HCPCS: 95816 ==

== ENCOUNTER 2019-07-22 15:08 | Outpatient (RCR) | payer SELFPAY | END 2019-08-13 23:59 | disposition home or self-care (01) | LOC: CR 15:08 | PROVIDERS: Family Provider Family Medicine; PCP Family Medicine; Referring Provider Internal Medicine Cardiovascular Disease; Visit Provider Internal Medicine Cardiovascular Disease | DX: Z95.5 Presence of coronary angioplasty implant and graft (principal) ==

== ENCOUNTER → 2019-08-12 12:38 | Outpatient (BNVA) | payer MEDICARE, SELFPAY | PROVIDERS: Family Provider Family Medicine; PCP Family Medicine; Visit Provider Specialist | DX: G40.109 Localization-related (focal) (partial) symptomatic epilepsy and epileptic syndromes with simple partial seizures, not intractable, without status epilepticus (principal) | CPT/HCPCS: 99213 ==

== ENCOUNTER 2020-01-28 13:49 | Outpatient (CLI) | payer MEDICARE, SELFPAY ==
--- NOTE | 2020-01-28 13:53 | MM_ITS ---
WS: [id number] BILATERAL DIGITAL SCREENING MAMMOGRAPHY WITH CAD CLINICAL INFORMATION: SCREENING HISTORY: Screening mammogram. No current complaints. COMPARISON: December 20, 2017 TECHNIQUE: Bilateral CC and MLO views. FINDINGS: Scattered fibroglandular densities bilaterally. No suspicious focal mass, asymmetry, calcifications, or architectural distortion. No evidence of malignancy. Lucent centered calcifications. MM/[place] [id number] IMPRESSION: BI-RADS: 2-Benign FOLLOW UP: 1 Year Follow-up Recommend return to annual screening mammography.
== END 2020-01-28 13:50 | disposition home or self-care (01) ==
LOC: RADSHAW 13:52
PROVIDERS: PCP Registered Nurse; Visit Provider Registered Nurse
DX: Z12.31 Encounter for screening mammogram for malignant neoplasm of breast (principal)
CPT/HCPCS: 77067

== ENCOUNTER → 2020-04-03 11:12 | Outpatient (BNVA) | payer MEDICARE, SELFPAY | PROVIDERS: PCP Registered Nurse; Visit Provider Specialist | DX: G40.909 Epilepsy, unspecified, not intractable, without status epilepticus (principal); Z87.891 Personal history of nicotine dependence | CPT/HCPCS: 99213; 99214 ==

== ENCOUNTER 2020-05-24 04:32 | Emergency (ER) | payer MEDICARE, SELFPAY ==
[2020-05-24 04:35] VITALS: BP 118/72; PULSE 72; RESP 17; TEMP 36.6; O2SAT 94; BMI 47.1
--- NOTE | 2020-05-24 04:35 | XRR_ITS ---
PROCEDURE INFORMATION: Exam: XR Chest Exam date and time: 05/24/2020 5:03 AM Age: 45 years old Clinical indication: Other: Seizure; Prior surgery; Surgery date: 6+ months; Surgery type: Cabg, stents, pacemaker; Additional info: Brandan TECHNIQUE: Imaging protocol: XR of the chest. Views: 1 view. COMPARISON: CR XR chest 1V portable [id number] 05/21/2019 7:40 AM FINDINGS: Tubes, catheters and devices: There is a left AICD with leads overlying the right ventricle. Lungs: Unremarkable. No consolidation. Pleural spaces: Unremarkable. No pleural effusion. No pneumothorax. Heart/Mediastinum: Unremarkable. No cardiomegaly. Bones/joints: There has been a median sternotomy. XR/XR chest 1V portable [id number] IMPRESSION: No acute disease.
[2020-05-24 04:39] VITALS: PULSE 71; RESP 17; O2SAT 94
--- NOTE | 2020-05-24 04:49 | CTR_ITS ---
PROCEDURE INFORMATION: Exam: CT Head Without Contrast Exam date and time: 05/24/2020 5:03 AM Age: 45 years old Clinical indication: Other: Seizure; Additional info: Sz TECHNIQUE: Imaging protocol: Computed tomography of the head without contrast. Radiation optimization: All CT scans at this facility use at least one of these dose optimization techniques: automated exposure control; mA and/or kV adjustment per patient size (includes targeted exams where dose is matched to clinical indication); or iterative reconstruction. COMPARISON: CT head wo con* [id number] 05/21/2019 12:17 PM RADIATION DOSE METRICS: Total DLP (mGy-cm): 937.28 FINDINGS: Brain: No acute infarct or hemorrhage. Cerebral ventricles: No ventriculomegaly. Bones/joints: Unremarkable. No acute fracture. Paranasal sinuses: Small left maxillary sinus mucous retention cyst. Mastoid air cells: Visualized mastoid air cells are clear. Soft tissues: Unremarkable. CT/CT head wo con* [id number] IMPRESSION: 1. No acute infarct or hemorrhage. 2. Small left maxillary sinus mucous retention cyst. Radiation Dose CTDIVOL = (mGy): DLP = 937.28 (mGy-cm)
[2020-05-24 04:58] LABS: Basophils % 0.3 %; Eosinophils # 0.5 10^3/uL (0.0-0.8); Hematocrit 41.6 % (37.0-47.0); Hemoglobin 13.5 g/dL (11.5-15.3); Lymphocytes # 2.1 10^3/uL (0.8-4.8); Lymphocytes % 16.4 %; Mean Corpuscular HGB Conc 32.5 g/dL (30.0-36.0); Mean Corpuscular Hemoglobin 30.1 pg (28.0-34.0); Mean Corpuscular Volume 92.7 fL (81-99); Monocytes # 0.6 10^3/uL (0.2-0.9); Monocytes % 4.8 %; Neutrophils # 9.24 10^3/uL (1.8-7.7); Neutrophils % 74.2 %; Nucleated Red Blood Cells % 0 %; Platelet Count 324 10^3/cmm (130-400); Red Blood Count 4.49 10^6/uL (4.1-5.3); Red Cell Distribution Width 13.3 % (12.1-15.1); White Blood Count 12.5 10^3/uL (4.0-10.0)
--- NOTE | 2020-05-24 05:19 | ED_ITS ---
Documented by User: Gustavo Xie DO 05/24/20 18:45 HPI - Seizure General: Chief Complaint: Seizure Stated Complaint: SEIZURE Time Seen by Provider: 05/24/20 04:34 History of Present Illness: HPI Narrative: 45-year-old female with a history of 1 seizure 1 year ago. She also has an extensive cardiac history with a CABG x4 vessel with 3 stents in the past she does not remember the event. reports waking up next to her in bed and witnessing tonic-clonic movements. This lasted for 2 to 3 minutes he believes. This was followed by a period of unresponsiveness. She had hit her head on the nightstand. After a period of unresponsiveness lasting a couple of minutes, she was aroused, but very confused acting postictal. She did not know her or her sister for several minutes following. She appears back to baseline now. She does complain of a headache with some nausea. complaint: seizure Onset (ago): minute(s) Description of Episode: loss of consciousness and tonic-clonic movement Witnessed: Yes - by Bystander Seizure History: Yes (05/25/2019) Place: Home Possible Precipitating Event: stress (Possibly) Associated symptoms: Reports confusion; Deny chest pain, chills, cough, fever(s), rash, short of breath or weakness Review of Systems Const: Denies: fever(s) or chills Eyes: Denies: change in vision ENMT: Denies: throat pain, nasal congestion or nasal obstruction Card: Denies: chest pain Resp: Denies: dyspnea or productive cough GI: Reports: nausea; Denies: abdominal pain, vomiting, hematemesis or diarrhea Neuro: Reports: headache(s), dizziness and confusion; Denies: weakness in extremities [facility] ED PFSH: Medical History (Updated 05/24/20 @ 07:09 by Jossue De Los Santos DO) Coronary artery disease Hyperlipidemia Hypertension Surgical History History of coronary artery bypass graft History of implantable cardioverter-defibrillator (ICD) placement Stented coronary artery Most recent stenting December 2018 saphenous vein graft to diagonal with drug-eluting stent as well as balloon angioplasty and saphenous vein graft to first obtuse marginal drug-eluting stent. Family History Other CAD (coronary artery disease) Social History Smoking and tobacco status: former smoker Alcohol intake: never History of recent travel: No Female Reproductive History: Date of last menstrual period: 05/10/20 Physical Exam Const: GENERAL APPEARANCE: well developed ORIENTATION/CONSCIOUSNESS: Yes oriented to person, Yes oriented to place and Yes oriented to time HENMT: COMMON NORMALS: normocephalic, external ears normal and Normal external nose present HEAD & SCALP: normocephalic FACE & SINUS: normal facial exam NOSE: Normal external nose present and No nasal discharge present EXTERNAL EAR: Yes external ears normal Eye: COMMON NORMALS: Equal, round and reactive pupils present, EOMs intact bilaterally and conjunctivae normal EYELID: eyelids normal CONJUNCTIVA: Yes conjunctivae normal PUPIL: Yes Equal, round and reactive pupils present Neck/C-Spine: GENERAL: No tracheal deviation Chest: COMMONS NORMALS: normal inspection of the chest CHEST: No tenderness Resp: COMMON NORMALS: clear to auscultation bilaterally EFFORT & INSPECTION: No tachypneic, No respiratory distress, No retractions, No uses accessory muscles and No tracheal deviation AUSCULTATION: clear to auscultation bilaterally, no rhonchi, no wheezes and lung sounds not diminished Cardio: COMMON NORMALS: regular rate and regular rhythm RATE: regular rate RHYTHM: regular rhythm HEART SOUNDS: no murmurs PERIPHERAL PULSES: radial pulses present GI: INSPECTION: No abdominal distension AUSCULTATION: No Hyperactive bowel sounds present and No Hypoactive bowel sounds present PALPATION: No Guarding due to palpation present (GI) and No Rigid due to palpation PERCUSSION: no dullness to percussion and no tympanic to percussion : COMMON NORMALS: Yes no CVA tenderness BLADDER/KIDNEY EXAM: Yes no CVA tenderness Back/Pelvis: COMMON NORMALS: no CVA tenderness Neuro: SENSORIUM/ORIENTATION: Yes oriented to person, Yes oriented to place and Yes oriented to time Psych: COMMON NORMALS: mental status grossly normal Skin: COMMON NORMALS: no rashes or lesions noted GENERAL SKIN EXAM: no rashes or lesions noted Course Vital Signs: Vital signs: Vital Signs Temperature 97.9 F 05/24/20 04:35 Pulse Rate 65 05/24/20 07:22 Respiratory Rate 14 05/24/20 07:22 Blood Pressure 128/83 05/24/20 07:22 Pulse Oximetry 95 05/24/20 07:22 MDM - Seizure MDM Narrative: Medical decision making narrative: Patient checked out at change of shift to Dr. De Los Santos for follow-up on laboratory and imaging. Lab Data: Labs: Lab Results 05/24/20 05/24/20 05/24/20 Range/Units 04:50 04:50 04:50 WBC 12.5 H (4.0-10.0) 10^3/ uL RBC 4.49 (4.1-5.3) 10^6/u L Hgb 13.5 (11.5-15.3) g/dL Hct 41.6 (37.0-47.0) % MCV 92.7 (81-99) fL MCH 30.1 (28.0-34.0) pg MCHC 32.5 (30.0-36.0) g/dL RDW 13.3 (12.1-15.1) % Plt Count 324 (130-400) 10^3/c mm MPV 10.0 (7.4-10.4) fL Neut % (Auto) 74.2 % Lymph % (Auto) 16.4 % Dale % (Auto) 4.8 % Eos % (Auto) 4.0 % Baso % (Auto) 0.3 % Neut # (Auto) 9.24 H (1.8-7.7) 10^3/u L Lymph # (Auto) 2.1 (0.8-4.8) 10^3/u L Dale # (Auto) 0.6 (0.2-0.9) 10^3/u L Eos # (Auto) 0.5 (0.0-0.8) 10^3/u L Baso # (Auto) 0.0 (0.0-0.1) 10^3/u L Nucleated RBC % (a uto) 0 % Nucleated RBCs # 0.0 /100WBC Sodium 137 (136-145) mmol/L Potassium 3.9 (3.5-5.1) mmol/L Chloride 107 (98-107) mmol/L Carbon Dioxide 19 L (22-29) mmol/L Anion Gap 14.9 (5-19) BUN 10 (6-20) mg/dL Creatinine 0.8 (0.5-0.9) mg/dL GFR Calculation 78.3 L (90-130) mL/min Glucose 140 H (65-115) mg/dL Calculated Osmolal ity 285 (285-295) mOsm/k g Calcium 8.6 (8.5-10.5) mg/dL Phosphorus 2.6 (2.5-4.5) mg/dL Magnesium 1.9 (1.7-2.3) mg/dL Total Bilirubin 0.2 (0.15-1.2) mg/dL AST 15 (0-32) U/L ALT 25 (0-33) U/L Alkaline Phosphata se 53 (35-105) IU/L Creatine Kinase 99 (26-192) U/L Troponin T Baselin e (0-10) ng/L Troponin T 120 Min [place] (0-10) ng/L Delta Troponin T (0-10) ABS# Total Protein 6.3 L (6.6-8.7) g/dL Albumin 3.8 (3.5-5.2) g/dL Globulin 2.5 (1.3-4.6) g/dL HCG, Qual Negative (Negative) Ethyl Alcohol < 10 (0-10) mg/dL 05/24/20 05/24/20 Range/Units 04:50 06:54 WBC (4.0-10.0) 10^3/ uL RBC (4.1-5.3) 10^6/u L Hgb (11.5-15.3) g/dL Hct (37.0-47.0) % MCV (81-99) fL MCH (28.0-34.0) pg MCHC (30.0-36.0) g/dL RDW (12.1-15.1) % Plt Count (130-400) 10^3/c mm MPV (7.4-10.4) fL Neut % (Auto) % Lymph % (Auto) % Dale % (Auto) % Eos % (Auto) % Baso % (Auto) % Neut # (Auto) (1.8-7.7) 10^3/u L Lymph # (Auto) (0.8-4.8) 10^3/u L Dale # (Auto) (0.2-0.9) 10^3/u L Eos # (Auto) (0.0-0.8) 10^3/u L Baso # (Auto) (0.0-0.1) 10^3/u L Nucleated RBC % (a uto) % Nucleated RBCs # /100WBC Sodium (136-145) mmol/L Potassium (3.5-5.1) mmol/L Chloride (98-107) mmol/L Carbon Dioxide (22-29) mmol/L Anion Gap (5-19) BUN (6-20) mg/dL Creatinine (0.5-0.9) mg/dL GFR Calculation (90-130) mL/min Glucose (65-115) mg/dL Calculated Osmolal ity (285-295) mOsm/k g Calcium (8.5-10.5) mg/dL Phosphorus (2.5-4.5) mg/dL Magnesium (1.7-2.3) mg/dL Total Bilirubin (0.15-1.2) mg/dL AST (0-32) U/L ALT (0-33) U/L Alkaline Phosphata se (35-105) IU/L Creatine Kinase (26-192) U/L Troponin T Baselin e 7 (0-10) ng/L Troponin T 120 Min [place] 8.61 (0-10) ng/L Delta Troponin T 1.61 (0-10) ABS# Total Protein (6.6-8.7) g/dL Albumin (3.5-5.2) g/dL Globulin (1.3-4.6) g/dL HCG, Qual (Negative) Ethyl Alcohol (0-10) mg/dL Discharge Plan Discharge Patient Disposition: Home Clinical Impression: Seizure, Partial epilepsy secondarily generalized Condition: Stable Prescriptions: Changed levetiracetam 500 mg tablet 750 mg PO BID Qty: 60 RF: 3 No Action zonisamide [Zonegran] 100 mg capsule 400 mg PO DAILY 90 Days Qty: 360 RF: 3 spironolactone 25 mg tablet 25 mg PO DAILY Qty: 30 RF: 0 losartan 100 mg tablet 100 mg PO DAILY Qty: 30 RF: 0 Plavix 75 mg tablet 75 mg PO DAILY Qty: 90 RF: 3 rosuvastatin 40 mg tablet 40 mg PO DAILY Qty: 90 RF: 3 furosemide 40 mg tablet 40 mg PO QAM Qty: 90 RF: 3 ezetimibe 10 mg tablet 10 mg PO DAILY Qty: 90 RF: 1 carvedilol 25 mg tablet 25 mg PO BID Qty: 180 RF: 3 famotidine 20 mg Tablet 20 mg PO BID RF: 0 aspirin 325 mg Tablet 325 mg PO DAILY RF: 0 Advair Diskus 250-50 mcg/dose blister with device 1 inh INHALATION BID Qty: 60 RF: 0 Combivent Respimat 20-100 mcg/actuation mist 1 puff INHALATION Q6H Qty: 4 RF: 0 Discharge Orders: Discharge ED (Routine); Ordered 05/24/20 Ordered By: Jossue De Los Santos Referrals: Tennille Dalton [Primary Care Provider] - Patient Instructions: Opioid Safety Activity Restrictions/Additional Instructions: Increase your Keppra to 750 mg twice daily. Follow-up with Dr. Joshi this coming week. Sign Out Sign Out Data: Patient Sign Out occurred on 05/24/20 at 06:45. Patient's care was discussed, and care was transferred from to Jossue De Los Santos DO. Coding Level of Care Code ED Towel Distributor for Chg Fwd Exam Comprehensive Documented by User: Jossue De Los Santos DO 05/24/20 07:28 HPI - Seizure General: Chief Complaint: Seizure Stated Complaint: SEIZURE Time Seen by Provider: 05/24/20 04:34 [facility] ED PFSH: Medical History (Updated 05/24/20 @ 07:09 by Jossue De Los Santos DO) Coronary artery disease Hyperlipidemia Hypertension Surgical History History of coronary artery bypass graft History of implantable cardioverter-defibrillator (ICD) placement Stented coronary artery Most recent stenting December 2018 saphenous vein graft to diagonal with drug-eluting stent as well as balloon angioplasty and saphenous vein graft to first obtuse marginal drug-eluting stent. Family History Other CAD (coronary artery disease) Social History Smoking and tobacco status: former smoker Alcohol intake: never History of recent travel: No Course Vital Signs: Vital signs: Vital Signs Temperature 97.9 F 05/24/20 04:35 Pulse Rate 65 05/24/20 07:22 Respiratory Rate 14 05/24/20 07:22 Blood Pressure 128/83 05/24/20 07:22 Pulse Oximetry 95 05/24/20 07:22 MDM - Seizure MDM Narrative: Medical decision making narrative: Care assumed a change of shift. Postictal phase is resolved patient is feeling better will increase Keppra to 750 twice daily have her follow-up with Dr. Joshi this upcoming week return for his further problems. Patient denies having any chest pain during this episode. Lab Data: Labs: Lab Results 05/24/20 05/24/20 05/24/20 Range/Units 04:50 04:50 04:50 WBC 12.5 H (4.0-10.0) 10^3/ uL RBC 4.49 (4.1-5.3) 10^6/u L Hgb 13.5 (11.5-15.3) g/dL Hct 41.6 (37.0-47.0) % MCV 92.7 (81-99) fL MCH 30.1 (28.0-34.0) pg MCHC 32.5 (30.0-36.0) g/dL RDW 13.3 (12.1-15.1) % Plt Count 324 (130-400) 10^3/c mm MPV 10.0 (7.4-10.4) fL Neut % (Auto) 74.2 % Lymph % (Auto) 16.4 % Dale % (Auto) 4.8 % Eos % (Auto) 4.0 % Baso % (Auto) 0.3 % Neut # (Auto) 9.24 H (1.8-7.7) 10^3/u L Lymph # (Auto) 2.1 (0.8-4.8) 10^3/u L Dale # (Auto) 0.6 (0.2-0.9) 10^3/u L Eos # (Auto) 0.5 (0.0-0.8) 10^3/u L Baso # (Auto) 0.0 (0.0-0.1) 10^3/u L Nucleated RBC % (a uto) 0 % Nucleated RBCs # 0.0 /100WBC Sodium 137 (136-145) mmol/L Potassium 3.9 (3.5-5.1) mmol/L Chloride 107 (98-107) mmol/L Carbon Dioxide 19 L (22-29) mmol/L Anion Gap 14.9 (5-19) BUN 10 (6-20) mg/dL Creatinine 0.8 (0.5-0.9) mg/dL GFR Calculation 78.3 L (90-130) mL/min Glucose 140 H (65-115) mg/dL Calculated Osmolal ity 285 (285-295) mOsm/k g Calcium 8.6 (8.5-10.5) mg/dL Phosphorus 2.6 (2.5-4.5) mg/dL Magnesium 1.9 (1.7-2.3) mg/dL Total Bilirubin 0.2 (0.15-1.2) mg/dL AST 15 (0-32) U/L ALT 25 (0-33) U/L Alkaline Phosphata se 53 (35-105) IU/L Creatine Kinase 99 (26-192) U/L Troponin T Baselin e (0-10) ng/L Troponin T 120 Min [place] (0-10) ng/L Delta Troponin T (0-10) ABS# Total Protein 6.3 L (6.6-8.7) g/dL Albumin 3.8 (3.5-5.2) g/dL Globulin 2.5 (1.3-4.6) g/dL HCG, Qual Negative (Negative) Ethyl Alcohol < 10 (0-10) mg/dL 05/24/20 05/24/20 Range/Units 04:50 06:54 WBC (4.0-10.0) 10^3/ uL RBC (4.1-5.3) 10^6/u L Hgb (11.5-15.3) g/dL Hct (37.0-47.0) % MCV (81-99) fL MCH (28.0-34.0) pg MCHC (30.0-36.0) g/dL RDW (12.1-15.1) % Plt Count (130-400) 10^3/c mm MPV (7.4-10.4) fL Neut % (Auto) % Lymph % (Auto) % Dale % (Auto) % Eos % (Auto) % Baso % (Auto) % Neut # (Auto) (1.8-7.7) 10^3/u L Lymph # (Auto) (0.8-4.8) 10^3/u L Dale # (Auto) (0.2-0.9) 10^3/u L Eos # (Auto) (0.0-0.8) 10^3/u L Baso # (Auto) (0.0-0.1) 10^3/u L Nucleated RBC % (a uto) % Nucleated RBCs # /100WBC Sodium (136-145) mmol/L Potassium (3.5-5.1) mmol/L Chloride (98-107) mmol/L Carbon Dioxide (22-29) mmol/L Anion Gap (5-19) BUN (6-20) mg/dL Creatinine (0.5-0.9) mg/dL GFR Calculation (90-130) mL/min Glucose (65-115) mg/dL Calculated Osmolal ity (285-295) mOsm/k g Calcium (8.5-10.5) mg/dL Phosphorus (2.5-4.5) mg/dL Magnesium (1.7-2.3) mg/dL Total Bilirubin (0.15-1.2) mg/dL AST (0-32) U/L ALT (0-33) U/L Alkaline Phosphata se (35-105) IU/L Creatine Kinase (26-192) U/L Troponin T Baselin e 7 (0-10) ng/L Troponin T 120 Min [place] 8.61 (0-10) ng/L Delta Troponin T 1.61 (0-10) ABS# Total Protein (6.6-8.7) g/dL Albumin (3.5-5.2) g/dL Globulin (1.3-4.6) g/dL HCG, Qual (Negative) Ethyl Alcohol (0-10) mg/dL Discharge Plan Discharge Patient Disposition: Home Clinical Impression: Seizure, Partial epilepsy secondarily generalized Condition: Stable Prescriptions: Changed levetiracetam 500 mg tablet 750 mg PO BID Qty: 60 RF: 3 No Action zonisamide [Zonegran] 100 mg capsule 400 mg PO DAILY 90 Days Qty: 360 RF: 3 spironolactone 25 mg tablet 25 mg PO DAILY Qty: 30 RF: 0 losartan 100 mg tablet 100 mg PO DAILY Qty: 30 RF: 0 Plavix 75 mg tablet 75 mg PO DAILY Qty: 90 RF: 3 rosuvastatin 40 mg tablet 40 mg PO DAILY Qty: 90 RF: 3 furosemide 40 mg tablet 40 mg PO QAM Qty: 90 RF: 3 ezetimibe 10 mg tablet 10 mg PO DAILY Qty: 90 RF: 1 carvedilol 25 mg tablet 25 mg PO BID Qty: 180 RF: 3 famotidine 20 mg Tablet 20 mg PO BID RF: 0 aspirin 325 mg Tablet 325 mg PO DAILY RF: 0 Advair Diskus 250-50 mcg/dose blister with device 1 inh INHALATION BID Qty: 60 RF: 0 Combivent Respimat 20-100 mcg/actuation mist 1 puff INHALATION Q6H Qty: 4 RF: 0 Discharge Orders: Discharge ED (Routine); Ordered 05/24/20 Ordered By: Jossue De Los Santos Referrals: Tennille Dalton [Primary Care Provider] - Patient Instructions: Opioid Safety Activity Restrictions/Additional Instructions: Increase your Keppra to 750 mg twice daily. Follow-up with Dr. Joshi this coming week. Sign Out Sign Out Data: Patient Sign Out occurred on 05/24/20 at 06:45. Patient's care was discussed, and care was transferred from to Jossue De Los Santos DO. Coding Level of Care Code ED Towel Distributor for Chg Fwd Exam Comprehensive
--- NOTE | 2020-05-24 05:20 | ECG_ITS ---
[facility] Test Date: 2020-05-24 Pat Name: Gilma Renteria Department: Room: Gender: Female Staff Radiographer: : 1975 Requested By: Gustavo Vidales Order Number: [id number] Flori MD: Elian Espinoza M.D. Measurements Intervals [place] Rate: 70 P: 72 ME: 178 QRS: 19 QRSD: 144 T: 144 QT: 418 QTc: 452 Interpretive Statements SINUS RHYTHM INTRAVENTRICULAR CONDUCTION DELAY [130+ ms QRS DURATION] POSSIBLE INFERIOR MYOCARDIAL INFARCTION , PROBABLY OLD [30 ms Q WAVE IN II/aVF] Compared to ECG 05/21/2019 15:30:36 Myocardial infarct finding now present T-wave abnormality no longer present Electronically Signed On 05-24-2020 15:30:11 CDT by Elian Espinoza M.D. [id number]
[2020-05-24 05:26] LABS: Alanine Aminotransferase 25 U/L (0-33); Albumin Level 3.8 g/dL (3.5-5.2); Alcohol Level < 10 mg/dL (0-10); Alkaline Phosphatase 53 IU/L (35-105); Anion Gap 14.9 (5-19); Aspartate Amino Transferase 15 U/L (0-32); Blood Urea Nitrogen 10 mg/dL (6-20); Calcium 8.6 mg/dL (8.5-10.5); Carbon Dioxide 19 mmol/L (22-29); Chloride 107 mmol/L (98-107); Creatine Phosphokinase 99 U/L (26-192); Globulin 2.5 g/dL (1.3-4.6); Glomerular Filtration Rate 78.3 mL/min (90-130); Glucose 140 mg/dL (65-115); Magnesium 1.9 mg/dL (1.7-2.3); Osmolality Calculated 285 mOsm/kg (285-295); Phosphorus 2.6 mg/dL (2.5-4.5); Potassium 3.9 mmol/L (3.5-5.1); Sodium 137 mmol/L (136-145); Total Bilirubin 0.2 mg/dL (0.15-1.2); Total Protein 6.3 g/dL (6.6-8.7)
[2020-05-24 05:32] LABS: HCG, Serum Qual Negative (Negative)
[2020-05-24 05:45] LABS: Troponin(5th) Baseline 7 ng/L (0-10)
[2020-05-24 06:47] VITALS: BP 119/85; PULSE 66; RESP 17; O2SAT 95
[2020-05-24 07:22] VITALS: BP 128/83; PULSE 65; RESP 14; O2SAT 95
[2020-05-24 07:26] LABS: Troponin 5 2HR 8.61 ng/L (0-10); Troponin 5 2HR Delta 1.61 ABS# (0-10)
[2020-05-29 21:32] LABS: Levetiracetam Keppra <2.0 mcg/mL
== END 2020-05-24 07:22 | disposition home or self-care (01) ==
PROVIDERS: Emergency Medicine; Emergency Provider Family Medicine; PCP Registered Nurse
DX: G40.409 Other generalized epilepsy and epileptic syndromes, not intractable, without status epilepticus (principal); Z79.82 Long term (current) use of aspirin; Z79.02 Long term (current) use of antithrombotics/antiplatelets; I25.10 Atherosclerotic heart disease of native coronary artery without angina pectoris; E78.5 Hyperlipidemia, unspecified; I10 Essential (primary) hypertension; Z95.1 Presence of aortocoronary bypass graft; Z95.810 Presence of automatic (implantable) cardiac defibrillator; Z87.891 Personal history of nicotine dependence
CPT/HCPCS: 36415; 70450; 71045; 80053; 80177; 80307; 82550; 83735; 84100; 84484; 84703; 85025; 93005; 96374; 99284

== ENCOUNTER → 2020-06-17 15:12 | Outpatient (BNVA) | payer MEDICARE, SELFPAY | PROVIDERS: PCP Registered Nurse; Visit Provider Specialist | DX: G40.109 Localization-related (focal) (partial) symptomatic epilepsy and epileptic syndromes with simple partial seizures, not intractable, without status epilepticus (principal); G40.909 Epilepsy, unspecified, not intractable, without status epilepticus; Z87.891 Personal history of nicotine dependence | CPT/HCPCS: 95816 ==

== ENCOUNTER → 2021-03-02 08:55 | Outpatient (BNVA) | payer MEDICARE, SELFPAY | PROVIDERS: PCP Registered Nurse; Visit Provider Internal Medicine Cardiovascular Disease | DX: E78.5 Hyperlipidemia, unspecified (principal) | CPT/HCPCS: 80061 ==

== ENCOUNTER → 2021-04-06 10:03 | Outpatient (BNVA) | payer MEDICARE, SELFPAY | PROVIDERS: PCP Registered Nurse; Visit Provider Specialist | DX: G40.109 Localization-related (focal) (partial) symptomatic epilepsy and epileptic syndromes with simple partial seizures, not intractable, without status epilepticus (principal); G40.409 Other generalized epilepsy and epileptic syndromes, not intractable, without status epilepticus; I25.10 Atherosclerotic heart disease of native coronary artery without angina pectoris; Z87.891 Personal history of nicotine dependence | CPT/HCPCS: 99214 ==

== ENCOUNTER 2021-06-17 14:45 | Outpatient (CLI) | payer MEDICARE, SELFPAY ==
--- NOTE | 2021-06-17 15:15 | USCV_ITS ---
RenteriaGilma burris Age: 46 Gender: F : 1975 Exam Date: 06/17/2021 15:11 Ordering Phys: Blanca Levy MD ([email or web address]) Technologist: STEPHANIE Exam Location: [facility] [place] Indication: DYSPNEA BP: 130 / 80 HR: 60 Rhythm: Sinus Technical Quality: Adequate MEASUREMENTS (Male / Female) Normal Values 2D ECHO LV Diastolic Diameter PLAX 7.0 cm 4.2 - 5.9 / 3.9 - 5.3 cm LV Systolic Diameter PLAX 5.2 cm IVS Diastolic Thickness 1.2 cm 0.6 - 1.0 / 0.6 - 0.9 cm IVS Systolic Thickness 1.8 cm LVPW Diastolic Thickness 1.2 cm 0.6 - 1.0 / 0.6 - 0.9 cm LVPW Systolic Thickness 1.7 cm LVOT Diameter 2.0 cm LV Ejection Fraction 2D Teich 49.6 % LV Ejection Fraction MOD 2C 60.4 % LV Ejection Fraction 2C AL 63.3 % LA Diameter 3.4 cm LA Width 3.5 cm LA Height 5.7 cm RA Width 3.7 cm RA Height 4.3 cm Aorta at Sinotubular Diameter 2.2 cm M-MODE Aortic Annulus Diameter 2.9 cm LA Ao Ratio MM 1.1 MV E Point Septal Separation 1.3 cm DOPPLER AV Peak Velocity 140.7 cm/s LVOT Peak Velocity 89.0 cm/s AV Area Cont Eq vti 1.8 cm squared AV Area Cont Eq pk 2.0 cm squared MV Peak Velocity 119.0 cm/s MV Area PHT 3.2 cm squared Mitral E to A Ratio 1.2 MV E' Velocity 50.5 cm/s Mitral E to MV E' Ratio 8.4 Mitral E to LV E' Lateral Ratio 8.1 Mitral E to LV E' Septal Ratio 8.7 TR Peak Velocity 244.5 cm/s TR Peak Gradient 23.9 mmHg TR Mean Velocity 186.1 cm/s TR Mean Gradient 14.3 mmHg TR Velocity Time Integral 82.2 cm TV Peak E Velocity 64.0 cm/s Right Atrial Pressure 3.0 mmHg Pulmonary Artery Systolic Pressu 26.9 mmHg PV Peak Velocity 84.0 cm/s RV Acceleration Time 0.1 s RV Ejection Time 0.3 s RV AcT/ET 0.3 FINDINGS Left Ventricle Moderately dilated dilated left ventricle. Diffuse hypokinesia of the left ventricle with ejection fraction of 35 to 40% Right Ventricle Catheter/pacemaker wire in the right ventricular cavity. Right Atrium Catheter/pacemaker wire in the right atrial cavity. Left Atrium Mildly increased left atrial size. Mitral Valve Trace mitral valve regurgitation. Aortic Valve Structurally normal aortic valve without significant sclerosis or stenosis. There is no aortic regurgitation. Tricuspid Valve Trace tricuspid valve regurgitation. Pulmonic Valve Pulmonic valve not well visualized. Pericardium Normal pericardium without effusion. Aorta Normal ascending aorta dimension. CONCLUSIONS Moderately dilated dilated left ventricle. Diffuse hypokinesia of the left ventricle with ejection fraction of 35 to 40%. Mildly increased left atrial size. Trace mitral valve regurgitation. Trace tricuspid valve regurgitation. Pulmonic valve not well visualized. There is no pericardial effusion. There are no intracardiac masses. Compared to the study from 10/23/2017, the LV size has slightly increased Dr Blanca Levy MD [facility] (Electronically Signed) Final Date: 17 Jun 2021 21:15 S
== END 2021-06-17 14:46 | disposition home or self-care (01) ==
LOC: RAD 14:48
PROVIDERS: PCP Registered Nurse; Visit Provider Internal Medicine Cardiovascular Disease
DX: R06.00 Dyspnea, unspecified (principal); E78.5 Hyperlipidemia, unspecified; I42.9 Cardiomyopathy, unspecified; I51.7 Cardiomegaly
CPT/HCPCS: 93306

== ENCOUNTER → 2021-07-09 09:51 | Outpatient (BNVA) | payer MEDICARE, SELFPAY | PROVIDERS: PCP Family Medicine; Visit Provider Nurse Practitioner Family | DX: I25.5 Ischemic cardiomyopathy (principal); Z87.891 Personal history of nicotine dependence; I10 Essential (primary) hypertension | CPT/HCPCS: 99213; 99214 ==

== ENCOUNTER 2021-07-16 09:31 | Outpatient (CLI) | payer MEDICARE, SELFPAY ==
[2021-07-16 10:14] LABS: Anion Gap 15.8 (5-19); Blood Urea Nitrogen 8 mg/dL (6-20); Calcium 9.4 mg/dL (8.5-10.5); Carbon Dioxide 22 mmol/L (22-29); Chloride 104 mmol/L (98-107); Glomerular Filtration Rate 60.2 mL/min (90-130); Glucose 101 mg/dL (65-115); Osmolality Calculated 284 mOsm/kg (285-295); Potassium 3.8 mmol/L (3.5-5.1); Sodium 138 mmol/L (136-145)
== END 2021-07-16 09:32 | disposition home or self-care (01) ==
LOC: LAB 09:33
PROVIDERS: PCP Family Medicine; Visit Provider Nurse Practitioner Family
DX: I42.9 Cardiomyopathy, unspecified (principal)
CPT/HCPCS: 80048

== ENCOUNTER 2021-07-30 10:08 | Outpatient (CLI) | payer MEDICARE, SELFPAY ==
[2021-07-30 11:13] LABS: Anion Gap 13.1 (5-19); Blood Urea Nitrogen 7 mg/dL (6-20); Calcium 9.2 mg/dL (8.5-10.5); Carbon Dioxide 25 mmol/L (22-29); Chloride 104 mmol/L (98-107); Glucose 102 mg/dL (65-115); Osmolality Calculated 284 mOsm/kg (285-295); Potassium 4.1 mmol/L (3.5-5.1); Sodium 138 mmol/L (136-145)
== END 2021-07-30 10:09 | disposition home or self-care (01) ==
LOC: LAB 10:15
PROVIDERS: PCP Family Medicine; Visit Provider Nurse Practitioner Family
DX: I25.5 Ischemic cardiomyopathy (principal); I42.0 Dilated cardiomyopathy
CPT/HCPCS: 80048

== ENCOUNTER 2021-08-11 09:34 | Outpatient (CLI) | payer MEDICARE, SELFPAY ==
--- NOTE | 2021-08-11 09:49 | MM_ITS ---
WS: [id number] BILATERAL SCREENING DIGITAL BREAST TOMOSYNTHESIS MAMMOGRAM WITH CAD HISTORY: SCREENING COMPARISON: 01/28/2020 and 12/20/2017 Bilateral CC and MLO views with tomosynthesis and synthetic mammography submitted. Computer aided det ection analyzed. Breast composition: There are scattered areas of fibroglandular density. No suspicious masses, microc alcifications or architectural distortion. Benign calcifications in each breast. MM/[place] [id number] IMPRESSION: BI-RADS: 2-Benign FOLLOW UP: 1 Year Follow-up
== END 2021-08-11 09:35 | disposition home or self-care (01) ==
LOC: RAD 09:34
PROVIDERS: PCP Family Medicine; Visit Provider Family Medicine
DX: Z12.31 Encounter for screening mammogram for malignant neoplasm of breast (principal)
CPT/HCPCS: 77063; 77067

== ENCOUNTER → 2022-03-22 11:04 | Outpatient (BNVA) | payer MEDICARE, SELFPAY | PROVIDERS: PCP Family Medicine; Visit Provider Internal Medicine Cardiovascular Disease | DX: I25.10 Atherosclerotic heart disease of native coronary artery without angina pectoris (principal); I10 Essential (primary) hypertension; E78.5 Hyperlipidemia, unspecified; I25.5 Ischemic cardiomyopathy; Z95.5 Presence of coronary angioplasty implant and graft; Z95.810 Presence of automatic (implantable) cardiac defibrillator; Z87.891 Personal history of nicotine dependence; Z95.1 Presence of aortocoronary bypass graft | CPT/HCPCS: 99213 ==

== ENCOUNTER → 2022-04-04 09:17 | Outpatient (BNVA) | payer MEDICARE, SELFPAY | PROVIDERS: PCP Family Medicine; Visit Provider Specialist | DX: G40.109 Localization-related (focal) (partial) symptomatic epilepsy and epileptic syndromes with simple partial seizures, not intractable, without status epilepticus (principal); G40.409 Other generalized epilepsy and epileptic syndromes, not intractable, without status epilepticus; G47.10 Hypersomnia, unspecified; G47.33 Obstructive sleep apnea (adult) (pediatric) | CPT/HCPCS: 99213 ==

== ENCOUNTER 2022-08-08 20:00 | Outpatient (CLI) | payer MEDICARE, SELFPAY | END 2022-08-08 20:01 | disposition home or self-care (01) | LOC: SLEEP 08-09 05:31 | PROVIDERS: PCP Family Medicine; Visit Provider Specialist | DX: G47.33 Obstructive sleep apnea (adult) (pediatric) (principal) | CPT/HCPCS: 95811 ==

== ENCOUNTER → 2022-09-20 14:02 | Outpatient (BNVA) | payer MEDICARE, SELFPAY | PROVIDERS: PCP Family Medicine; Visit Provider Internal Medicine Cardiovascular Disease | DX: Z95.810 Presence of automatic (implantable) cardiac defibrillator (principal); I25.10 Atherosclerotic heart disease of native coronary artery without angina pectoris; I10 Essential (primary) hypertension; E78.5 Hyperlipidemia, unspecified; G47.33 Obstructive sleep apnea (adult) (pediatric); I25.5 Ischemic cardiomyopathy; I42.0 Dilated cardiomyopathy; Z87.891 Personal history of nicotine dependence | CPT/HCPCS: 93289; 99214 ==

== ENCOUNTER → 2022-11-14 14:37 | Outpatient (BNVA) | payer MEDICARE, SELFPAY | PROVIDERS: PCP Family Medicine; Visit Provider Specialist | DX: G47.33 Obstructive sleep apnea (adult) (pediatric) (principal); I25.5 Ischemic cardiomyopathy; I42.0 Dilated cardiomyopathy | CPT/HCPCS: 99213 ==

== ENCOUNTER → 2023-03-21 09:41 | Outpatient (BNVA) | payer MEDICARE, SELFPAY | PROVIDERS: PCP Family Medicine; Visit Provider Specialist | DX: G40.909 Epilepsy, unspecified, not intractable, without status epilepticus (principal); G47.33 Obstructive sleep apnea (adult) (pediatric); G40.209 Localization-related (focal) (partial) symptomatic epilepsy and epileptic syndromes with complex partial seizures, not intractable, without status epilepticus; I25.5 Ischemic cardiomyopathy; I42.0 Dilated cardiomyopathy | CPT/HCPCS: 99213 ==

== ENCOUNTER → 2023-04-04 13:40 | Outpatient (BNVA) | payer MEDICARE, SELFPAY | PROVIDERS: PCP Family Medicine; Visit Provider Internal Medicine Cardiovascular Disease | DX: I25.5 Ischemic cardiomyopathy (principal); I42.0 Dilated cardiomyopathy; Z95.810 Presence of automatic (implantable) cardiac defibrillator; E78.5 Hyperlipidemia, unspecified; I10 Essential (primary) hypertension; I25.10 Atherosclerotic heart disease of native coronary artery without angina pectoris; Z87.891 Personal history of nicotine dependence | CPT/HCPCS: 99214 ==

== ENCOUNTER → 2023-10-06 09:43 | Outpatient (BNVA) | payer MEDICARE, SELFPAY | PROVIDERS: PCP Family Medicine; Visit Provider Nurse Practitioner Family | DX: I25.10 Atherosclerotic heart disease of native coronary artery without angina pectoris (principal); I10 Essential (primary) hypertension; Z95.810 Presence of automatic (implantable) cardiac defibrillator; Z87.891 Personal history of nicotine dependence | CPT/HCPCS: 99214 ==

== ENCOUNTER → 2023-11-15 11:56 | Outpatient (BNVA) | payer MEDICARE, SELFPAY | PROVIDERS: PCP Family Medicine; Visit Provider Specialist | DX: G47.33 Obstructive sleep apnea (adult) (pediatric) (principal); I25.5 Ischemic cardiomyopathy; I42.0 Dilated cardiomyopathy; G40.909 Epilepsy, unspecified, not intractable, without status epilepticus | CPT/HCPCS: 99213 ==

== ENCOUNTER → 2024-03-19 08:35 | Outpatient (BNVA) | payer MEDICARE, SELFPAY | PROVIDERS: PCP Family Medicine; Visit Provider Specialist | DX: G40.909 Epilepsy, unspecified, not intractable, without status epilepticus (principal); G47.33 Obstructive sleep apnea (adult) (pediatric); I25.5 Ischemic cardiomyopathy; I42.0 Dilated cardiomyopathy | CPT/HCPCS: 99213 ==

== ENCOUNTER → 2024-05-21 10:47 | Outpatient (BNVA) | payer MEDICARE, SELFPAY | PROVIDERS: PCP Family Medicine; Visit Provider Internal Medicine Cardiovascular Disease | DX: I25.10 Atherosclerotic heart disease of native coronary artery without angina pectoris (principal); I25.5 Ischemic cardiomyopathy; I42.0 Dilated cardiomyopathy; Z95.810 Presence of automatic (implantable) cardiac defibrillator; E78.5 Hyperlipidemia, unspecified; I10 Essential (primary) hypertension; G47.33 Obstructive sleep apnea (adult) (pediatric); G40.409 Other generalized epilepsy and epileptic syndromes, not intractable, without status epilepticus | CPT/HCPCS: 99214 ==

== ENCOUNTER → 2024-07-02 09:56 | Outpatient (BNVA) | payer MEDICARE, SELFPAY | PROVIDERS: PCP Family Medicine; Visit Provider Internal Medicine Cardiovascular Disease | DX: Z45.02 Encounter for adjustment and management of automatic implantable cardiac defibrillator (principal); I48.91 Unspecified atrial fibrillation; Z79.01 Long term (current) use of anticoagulants; I25.118 Atherosclerotic heart disease of native coronary artery with other forms of angina pectoris; I31.9 Disease of pericardium, unspecified; I25.10 Atherosclerotic heart disease of native coronary artery without angina pectoris; I25.5 Ischemic cardiomyopathy; I42.0 Dilated cardiomyopathy; E78.5 Hyperlipidemia, unspecified; G47.33 Obstructive sleep apnea (adult) (pediatric); Z87.891 Personal history of nicotine dependence; I11.0 Hypertensive heart disease with heart failure; I50.1 Left ventricular failure, unspecified | CPT/HCPCS: 99214 ==

== ENCOUNTER 2024-07-25 09:27 | Outpatient (CLI) | payer MEDICARE, SELFPAY ==
[2024-07-25 10:02] LABS: Basophils % 0.6 %; Eosinophils # 0.3 10^3/uL (0.0-0.8); Eosinophils % 4.6 %; Hematocrit 42.3 % (36-47); Lymphocytes # 1.9 10^3/uL (0.8-4.8); Lymphocytes % 28.8 %; Mean Corpuscular HGB Conc 32.9 g/dL (30-55); Mean Corpuscular Hemoglobin 30.8 pg (27-33); Mean Corpuscular Volume 93.8 fl (85-98); Mean Platelet Volume 9.5 fL (7.4-10.4); Monocytes # 0.5 10^3/uL (0.2-0.9); Monocytes % 7.8 %; Neutrophils # 3.88 10^3/uL (1.8-7.7); Neutrophils % 57.9 %; Nucleated Red Blood Cells % 0 %; Platelet Count 313 10^3/cmm (157-399); Red Blood Count 4.51 10^6/uL (3.85-5.65); Red Cell Distribution Width 12.4 % (12.1-15.1)
[2024-07-25 10:28] LABS: INR 0.87 (0.8-1.2)
[2024-07-25 10:32] LABS: Anion Gap 17.4 (5-19); Blood Urea Nitrogen 10 mg/dL (6-20); Calcium 9.1 mg/dL (8.5-10.5); Carbon Dioxide 23 mmol/L (22-29); Chloride 105 mmol/L (98-107); Glomerular Filtration Rate 59.4 mL/min (90-130); Glucose 101 mg/dL (65-115); Osmolality Calculated 291 mOsm/kg (285-295); Potassium 4.4 mmol/L (3.5-5.1); Sodium 141 mmol/L (136-145)
[2024-07-25 10:37] LABS: Troponin T (5th) Once < 6 ng/L (0-10)
== END 2024-07-25 09:28 | disposition home or self-care (01) ==
PROVIDERS: PCP Family Medicine; Visit Provider Internal Medicine Cardiovascular Disease
DX: R06.02 Shortness of breath (principal); I25.118 Atherosclerotic heart disease of native coronary artery with other forms of angina pectoris; Z45.02 Encounter for adjustment and management of automatic implantable cardiac defibrillator; I31.9 Disease of pericardium, unspecified; Z79.01 Long term (current) use of anticoagulants; I48.91 Unspecified atrial fibrillation
CPT/HCPCS: 36415; 80048; 84484; 85025; 85610; 86850; 86900

== ENCOUNTER 2024-07-29 05:55 | Outpatient (CLI) | payer MEDICARE, SELFPAY ==
[2024-07-29] VITALS (9 sets, daily range): BP systolic 93–148; BP diastolic 58–78; PULSE 55–97; RESP 15–18; TEMP 36.5–36.9; O2SAT 93–97; BMI 42.6; BMI 40.0
--- NOTE | 2024-07-29 07:07 | W.PM.OPSUD ---
Surgery/Procedure H&P Update DATE OF PROCEDURE: July 29, 2024 DATE H&P PERFORMED: 07/02/24 H&P UPDATE INFORMATION: I have reviewed H&P completed within last 30 days, I have examined patient prior to procedure and No changes to prior documentation PREOP DIAGNOSIS: Single-chamber ICD, CARLO PRIMARY INDICATION FOR PROCEDURE: Patient with history of ASHD, cardiomyopathy, hypertension, dyslipidemia, ICD for primary prophylaxis, found to be in CARLO PLANNED PROCEDURE: Operation Date: 07/29/24 07:00 Proposed Procedures p Pacemaker Generator Change - REM/ REP Single ICD(Not Applicable) - Blanca Levy MD PATIENT REASSESSED PRIOR TO SEDATION, WITH NO CHANGE NOTED: Yes PHYSICAL EXAM: alert, oriented x 3, clear to auscultation bilaterally and regular rate & rhythm AIRWAY EVAL/ANESTHESIA PLAN: normal airway, see other exam findings, ASA III, Monitored Anesthesia, Local Anesthesia, Risks, benefits & alternatives of sedation and/or procedure discussed and Patient agrees to continue as planned
--- NOTE | 2024-07-29 07:11 | P.OP_ITS ---
Operative Report Date of procedure: July 29, 2024 Surgeon: Blanca Levy MD Procedure: PROCEDURE: ICD REVISION PREOPERATIVE DIAGNOSIS: ICD elective replacement indication. POSTOPERATIVE DIAGNOSIS: ICD elective replacement indication. ESTIMATED BLOOD LOSS: Around milliliters. COMPLICATIONS: None. BRIEF HISTORY: The patient is 49-year-old white female who had a ICD implantation for primary prophylaxis. The patient was found to have elective replacement indication, during routine office followup evaluation. For further management of patient's condition and for the symptomatic bradycardia, the patient required an ICD revision. Patient has a history of ischemic cardiomyopathy, atherosclerotic heart diseas, high blood pressure and dyslipidemia. The procedure was explained to the patient and his in detail with the risks and benefits. The risks of bleeding, hematoma, vascular injury, infection and other concomitant complications were explained in detail, which the patient understood well and consented to proceed. PROCEDURES PERFORMED: 1. Explantation of the old ICD device . 2. Implantation of the new ICD device The patient brought to the Cardiac Fish Dressing Machine Feeder. The left side of the neck and the subclavian area were cleaned and draped in a sterile fashion. 1% Xylocaine was used for local anesthetic agent. A 2 inch long incision was made just below the previous pacemaker scar. By sharp and blunt dissection, the ICD pocket was accessed. The old generator was delivered from the pocket. The generator was detached from the lead s. The new generator was attached to the lead. The ICD pocket was copiously irrigated with vancomycin solution. Complete hemostasis was achieved. The lead was positioned behind the generator and the generator was attached to the pectoralis fascia by suturing with 0 Surgilon. Sponge counts were confirmed. The ICD pocket was closed in layers. Skin was approximated using 4-0 Vicryl. EXPLANTED DEVICE: ICD Device: Date of implant 08/15/2014 Brand: Ellipse VR Model number: 14 1 1-36C. Serial number: [id number] [id number]- Smartpay IMPLANTED DEVICES: Ventricular Lead: Date of implantation: 12/18/2007 Model number: 7122/65 Serial number: [id number] Make: [place]. Implanted Generator: Date of implantation 07/29/2024 Brand: Ellipse VR. Model number:CD 1411-36C Serial number: [id number] Stimulation Threshold: Through the Device--the ventricular sensing was 11.7 millivolts. Lead impedance was 440 ohms and the pacing threshold was 1.0 volts at 0.5 milliseconds. The pacemaker was set for VVI mode with a low rate of 40 The DFT testing was not done The ventricular fibrillation detection rate was set at 200 bpm A pressure dressing was applied over the ICD site. The patient was transferred back to medical floor in stable condition.
--- NOTE | 2024-07-29 08:54 | PC.NURSE ---
Per Helen nurse from analyst microbiology lab, no sling needed and also no restrictions.
[2024-07-29] MEDS: vancomycin 1,750 MG/350 ML PIGGYBACK 233.33 MG IV (09:46)
[2024-07-29] MEDS: aspirin 325 mg Tablet PO (09:51)
[2024-07-29] MEDS: spironolactone 25 mg Tablet PO (09:51)
[2024-07-29] MEDS: zonisamide 100 MG Capsule 500 MG PO (09:51)
[2024-07-29] MEDS: ezetimibe 10 mg Tablet PO (09:51)
[2024-07-29] MEDS: LEVETIRACETAM 750 MG 1500 EACH PO (15:58)
[2024-07-29] MEDS: sacubitril/valsartan 24-26 mg Tablet 4 EACH PO (17:10)
[2024-07-29] MEDS: ATORVASTATIN 10 MG TABLET 20 MG PO (20:28)
[2024-07-30 03:34] VITALS: BP 146/68; PULSE 82; RESP 17; TEMP 36.9; O2SAT 94
[2024-07-30] MEDS: FUROsemide 40 mg Tablet PO (05:34)
--- NOTE | 2024-07-30 05:35 | ECG_ITS ---
[facility] [place] [facility] Date: 2024-07-30 Pat Name: Gilma Renteria Department: Room: 266 Gender: Female Measurement Superintendent: : 1975 Requested By: Blanca Levy Order Number: [id number] Flori MD: Juan Lala M.D. Measurements Intervals [place] Rate: 70 P: 55 LA: 179 QRS: -7 QRSD: 138 T: 87 QT: 406 QTc: 441 Interpretive Statements SINUS RHYTHM INTRAVENTRICULAR CONDUCTION DELAY [130+ ms QRS DURATION] POSSIBLE ANTERIOR MYOCARDIAL INFARCTION , OF INDETERMINATE AGE [30 ms Q WAVE IN V3/V4, OR R < 0.2 mV IN V4] Compared to ECG 05/24/2020 05:29:21 No significant changes Electronically Signed On 08-01-2024 08:21:04 CDT by Juan Lala M.D. [email or web address] [id number]
[2024-07-30 06:58] VITALS: BP 120/78; PULSE 63; RESP 20; TEMP 36.2; O2SAT 95
[2024-07-30 07:38] VITALS: BP 104/71; PULSE 68; RESP 16; TEMP 37.1; O2SAT 94
[2024-07-30] MEDS: sacubitril/valsartan 24-26 mg Tablet 4 EACH PO (07:38)
[2024-07-30] MEDS: zonisamide 100 MG Capsule 500 MG PO (07:38)
[2024-07-30] MEDS: aspirin 325 mg Tablet PO (07:39)
[2024-07-30] MEDS: spironolactone 25 mg Tablet PO (07:39)
[2024-07-30] MEDS: ezetimibe 10 mg Tablet PO (07:39)
[2024-07-30] MEDS: LEVETIRACETAM 750 MG 1500 EACH PO (07:42)
--- NOTE | 2024-07-30 08:52 | PM.PN ---
Subjective Subjective: Patient is admitted to hospital following the device revision for IV antibiotics and close monitoring She remained asymptomatic throughout the hospital course. No hematoma bleeding from the device revision site Medications: Medication Review Details: Current Medications Aspirin (Aspirin 325 Mg Tablet) 325 mg PO DAILY [facility] Last Admin: 07/30/24 07:39 Dose: 325 mg Atorvastatin Calcium (Atorvastatin 10 Mg Tablet) 20 mg PO BEDTIME [facility] Last Admin: 07/29/24 20:28 Dose: 20 mg Ezetimibe (Ezetimibe 10 Mg Tablet) 10 mg PO DAILY [facility] Last Admin: 07/30/24 07:39 Dose: 10 mg Furosemide (Furosemide 40 Mg Tablet) 40 mg PO QAM [facility] Last Admin: 07/30/24 05:34 Dose: 40 mg Sodium Chloride (Sodium Chloride 0.9%) 1,000 mls @ 75 mls/hr IV .[id number] [facility] Last Admin: 07/29/24 20:23 Dose: Not Given Non-Formulary Medication (Levetiracetam) 1,500 mg PO DAILY [facility] Last Admin: 07/30/24 07:42 Dose: 1,500 mg Sacubitril/Valsartan (Sacubitril/Valsartan 24-26 Mg Tablet) 4 each PO BID [facility] Last Admin: 07/30/24 07:38 Dose: 4 each Spironolactone (Spironolactone 25 Mg Tablet) 25 mg PO DAILY [facility] Last Admin: 07/30/24 07:39 Dose: 25 mg Tizanidine HCl (Tizanidine 4 Mg Tablet) 4 mg PO Q8H PRN PRN Reason: Dizziness Zonisamide (Zonisamide 100 Mg Capsule) 500 mg PO DAILY [facility] Last Admin: 07/30/24 07:38 Dose: 500 mg Vitals/I&O/Wt Last Vital Signs Temp 98.7 F 07/30/24 07:38 Pulse 68 07/30/24 07:38 Resp 16 07/30/24 07:38 BP 104/71 07/30/24 07:38 Pulse Ox 94 07/30/24 07:38 O2 Del Method Room Air 07/30/24 07:38 07/29/24 07/30/24 07/30/24 22:59 06:59 14:59 Intake Total 480 / 1070 Output Total 480 / 480 Balance 0 / 590 Weight last 48 hrs Weight 248 lb Weight 248 lb Weight 264 lb Physical Exam Narrative: GENERAL: The patient is alert and oriented times three. Not in any acute distress. HEENT: No significant pallor, icterus or lymphadenopathy.Oral cavity: There are no mucous membrane lesions. NECK: Trachea appears to be central. No masses noted. No JVD or thyromegaly appreciated. RESPIRATORY: Chest is symmetrical. No intercostals muscle retraction or any accessory muscle activation. There is no chest wall tenderness. Breath sounds are heard bilaterally. No rales or rhonchi heard. No evidence of any consolidation. The ICD revision site appears to have no hematoma bleeding BREASTS: Deferred. HEART: The heart sounds are normal. No S3 or S4. No significant murmurs. No pericardial rub ABDOMEN: No vessel pulsations or distention. No tenderness. No organomegaly appreciated. Bowel sounds are normally heard. : Deferred. RECTAL: Deferred. LYMPHATIC: No lymphadenopathy noted in the neck. EXTREMITIES: No edema or cyanosis. No clubbing. MUSCULOSKELETAL: No acute joint deformities or swelling SKIN: There are no significant rashes or ecchymosis NEUROPSYCHIATRIC: The patient is alert and oriented x3. Appears to be in a good mood. No tremors or rigidity noted. A&P Assessment and plan (1) Elective replacement indicated for implantable cardioverter-defibrillator (ICD): Patient is status post revision, currently seems to be stable. Device function is appropriate (2) Atherosclerosis of coronary artery of [place] heart without angina pectoris: Coronary artery disease seems to be stable. May continue on the current management. (3) Benign essential hypertension with target blood pressure below 140/90: Since the blood pressure is in the normal range, patient may not require any medication changes at this time. Advised to continue on the current measures. (4) Ischemic dilated cardiomyopathy: Since the patient has no evidence of any cardiac decompensation, is advised to continue on the current measures. The current medications were reviewed. (5) Dyslipidemia: Patient is known to have dyslipidemia. Advised to continue on the current medications. Will have the follow-up evaluation as scheduled. Patient understands the importance of dietary compliance Plan Patient may continue the current medications. Given a prescription for the Bactrim, since she is allergic to penicillin Continue other medications as at this Will be seen in the clinic in a week to do a device check and incision check PDMP PDMP Reviewed: Not Reviewed Attestations Medical Necessity Statement*: Discharge home today Coding Level of Care Code 07025 Diagnoses Elective replacement indicated for implantable cardioverter-defibrillator (ICD) Z45.02 Atherosclerosis of [place] coronary artery of [place] heart without angina pectoris I25.10 Coronary Disease-Associated Artery/Lesion type: [place] artery Benign essential hypertension with target blood pressure below 140/90 I10 Ischemic dilated cardiomyopathy I25.5; I42.0 Dyslipidemia E78.5
[2024-07-30 10:01] VITALS: BP 104/71; PULSE 68; RESP 16; TEMP 37.1; O2SAT 94
== END 2024-07-30 10:03 | disposition home or self-care (01) ==
LOC: CCL 05:56 → MEDSURG 16:32
PROVIDERS: PCP Family Medicine; Visit Provider Internal Medicine Cardiovascular Disease
DX: Z45.02 Encounter for adjustment and management of automatic implantable cardiac defibrillator (principal); I25.10 Atherosclerotic heart disease of native coronary artery without angina pectoris; I10 Essential (primary) hypertension; I25.5 Ischemic cardiomyopathy; I42.0 Dilated cardiomyopathy; E78.5 Hyperlipidemia, unspecified; Z79.82 Long term (current) use of aspirin; Z82.49 Family history of ischemic heart disease and other diseases of the circulatory system; Z87.891 Personal history of nicotine dependence; G47.33 Obstructive sleep apnea (adult) (pediatric)
CPT/HCPCS: 33262; 36415; 93005; 96374; 97165; 99152; 99153; A4216; C1721; C1769; G0378; J2250; J3010; J3370; J3372; J7030; J7050; J9999

== ENCOUNTER → 2024-08-08 13:53 | Outpatient (BNVA) | payer MEDICARE, SELFPAY | PROVIDERS: PCP Family Medicine; Visit Provider Nurse Practitioner Family | DX: I25.10 Atherosclerotic heart disease of native coronary artery without angina pectoris (principal); I10 Essential (primary) hypertension; Z79.02 Long term (current) use of antithrombotics/antiplatelets; Z79.82 Long term (current) use of aspirin; Z95.810 Presence of automatic (implantable) cardiac defibrillator; Z95.5 Presence of coronary angioplasty implant and graft; Z95.1 Presence of aortocoronary bypass graft; Z87.891 Personal history of nicotine dependence | CPT/HCPCS: 99214 ==

== ENCOUNTER → 2024-11-25 09:48 | Outpatient (BNVA) | payer MEDICARE, SELFPAY | PROVIDERS: PCP Family Medicine; Visit Provider Specialist | DX: G47.33 Obstructive sleep apnea (adult) (pediatric) (principal); I25.5 Ischemic cardiomyopathy; I42.0 Dilated cardiomyopathy; Z95.810 Presence of automatic (implantable) cardiac defibrillator | CPT/HCPCS: 99213 ==

== ENCOUNTER → 2024-12-06 11:13 | Outpatient (BNVA) | payer MEDICARE, SELFPAY | PROVIDERS: PCP Family Medicine; Visit Provider Internal Medicine Cardiovascular Disease | DX: I42.0 Dilated cardiomyopathy (principal); I25.5 Ischemic cardiomyopathy; I25.10 Atherosclerotic heart disease of native coronary artery without angina pectoris; I10 Essential (primary) hypertension; E78.5 Hyperlipidemia, unspecified; G47.33 Obstructive sleep apnea (adult) (pediatric); Z95.810 Presence of automatic (implantable) cardiac defibrillator; Z95.5 Presence of coronary angioplasty implant and graft; Z87.891 Personal history of nicotine dependence | CPT/HCPCS: 99214 ==

== ENCOUNTER → 2025-01-29 10:03 | Outpatient (BNVA) | payer MEDICARE, SELFPAY | PROVIDERS: PCP Family Medicine; Visit Provider Internal Medicine Cardiovascular Disease | DX: Z45.02 Encounter for adjustment and management of automatic implantable cardiac defibrillator (principal) | CPT/HCPCS: 93296 ==